=== PATIENT | male | born 1980 | race Caucasian/White ===

== ENCOUNTER → 2018-01-16 01:43 | Outpatient (CLI) | payer MEDICAID, SELFPAY ==
--- NOTE | 2018-01-16 15:27 | DI.REPORT_ITS ---
SYMPTOMS/DIAGNOSIS: LT ELBOW PAIN AND STIFFNESS, FOR PAST 2 MONTHS GETTING WORSE, M25.522 LEFT ELBOW: Comparison is made with right elbow dated 3Feb17. No fracture or other bony deformity is seen. The bones appear normally mineralized. No joint effusion or significant degenerative changes are seen. IMPRESSION: Negative left elbow.
== END ==
PROVIDERS: PCP Family Medicine; Visit Provider Family Medicine
DX: M25.522 Pain in left elbow (principal); M25.622 Stiffness of left elbow, not elsewhere classified
CPT/HCPCS: 73080

== ENCOUNTER 2018-01-29 17:44 | Emergency (ER) | payer MEDICAID, SELFPAY ==
[2018-01-29 17:57] VITALS: BP 141/83; PULSE 85; RESP 20; TEMP 37.3; O2SAT 97
--- NOTE | 2018-01-29 18:50 | DI.REPORT_ITS ---
SYMPTOM/DIAGNOSIS: PAIN AFTER ROTATIONAL INJURY LEFT FOOT: Multiple views. No acute fracture or dislocation is seen. Mild degenerative changes are seen in the left foot, particularly at the first metatarsal phalangeal joint. No radiopaque foreign bodies are seen in the soft tissues. There is mild swelling of the forefoot. IMPRESSION: No acute fracture or dislocation.
--- NOTE | 2018-01-29 18:54 | ED.GENADUL_ITS ---
Disposition Clinical Impression: Foot sprain Disposition: HOME Condition: Stable Instructions: Foot Sprain (ED) Additional Instructions: Encourage rest, Ice, elevation. Tylenol and/or ibuprofen as needed for discomfort. Keep upcoming appointment with Dr. Estrada. Please contact our office tomorrow to see if it is possible to have your foot evaluated by him this week. If not, please follow-up with primary care next week for reevaluation. Continue with crutches and postoperative shoe while pain persists. If you develop new or worsening symptoms please seek care urgently once again. Referrals: James Barajas MD [Primary Care Provider] - Moe Estrada MD [ [facility] STAFF PHYSICIAN] - Medical Decision Making - Radiology Data Radiology results: report reviewed Imaging reviewed by radiologist. Advise mild first metatarsophalangeal degenerative changes. No significant tarsometatarsal disruption is identified radiographically. Mild tibiotalar degenerative changes. No acute fracture. No dislocation. Dorsal foot soft tissue swelling noted. No acute bony pathology. - Medical Decision Making Patient presents today with chief complaint of left foot pain after jumping out of a truck and suffered a rotational injury. On exam, patient is having pain over the arch, the midfoot as well as the proximal fifth metatarsal. Sensation is intact. He is a 2+ distal pulses. Brisk capillary refill. No pain over the medial or lateral malleolus. Range of motion of the ankle is not assessed secondary to his pain in the foot. Achilles is palpated, no pain to palpation, feels to be intact. Negative Lane test. No pain with over the fibular head or neck. Calf is soft and nontender. Will give patient Tylenol and ibuprofen will obtain foot x-rays, I have specifically requested a weighted image to evaluate for possible midfoot injury. X-ray reviewed by radiologist. No significant normality noted. I discussed this with patient. Advised sprain. Encourage rest, ice, elevation. Tylenol and/or ibuprofen as needed for discomfort. Patient be fitted with a postoperative shoe and given crutches to help with ambulation. He does report that he has an upcoming appointment with Dr. Estrada for other issue. He is questioning if he may discuss this further with Dr. Estrada. I advised that he contact the office tomorrow to discuss the addition of the new complaint to his upcoming visit. If he is unable to have this completed in a timely manner expected with his appointment, I advised that he follow-up with primary care. We discussed new/worsening symptoms when to seek care urgently once again. We discussed activities that he should avoid which cause undue pressure and increased pain on the foot. All his questions and concerns were addressed and he is in agreement with this plan. History of Present Illness - General Chief complaint: Orthopedic Stated complaint: LT LEG FOOT PAIN Time Seen by Provider: 01/29/18 18:50 Source: patient, family, RN notes reviewed Mode of arrival: ambulatory Limitations: no limitations - History of Present Illness Initial comments: Patient is a 37-year-old male, accompanied by his mother, with chief complaint of left foot pain. He reports that approximately 2:00 this afternoon when he jumped out of his truck he suffered a rotational injury to the foot. He was wearing the work boots at the time of the injury. He denies any altered sensation. Is been having difficulty ambulating secondary to his discomfort. Indicating pain about the foot, but is a midfoot as area of discomfort. Pain is also noted laterally and medially. Denies any pain in the toes. States the pain can radiate proximally with ambulation but denies any injury to the ankle or knee. Denies other injury the time of the incident. Did not strike his head or lose consciousness. No break in the skin. - Related Data Diclofenac Sodium 75 mg PO BID #60 tab-cap 01/15/18 Fluoxetine HCl [Prozac] 40 mg PO DAILY #90 tab-cap 01/15/18 Allergies Allergy/AdvReac Type Severity Reaction Status Date / Time No Known Allergies Allergy Unverified 01/29/18 18:00 Review of Systems Constitutional: no symptoms reported Respiratory: no symptoms reported Musculoskeletal: as per HPI Skin: as per HPI. denies: rash, lesions, change in color Neurological: as per HPI, abnormal gait Past Medical History - Past Medical History Diverticulitis, cervical fusion post trauma Surgical history: no surgical history General Exam - General Limitations: no limitations General appearance: alert, in no apparent distress - Eye Eye exam: Present: normal apperance - Respiratory Respiratory exam: Absent: respiratory distress - Extremities Exam Extremities exam: Present: tenderness, normal capillary refill, joint swelling. Absent: normal inspection (Exam the patient's left lower extremity is significant for swelling to the dorsal aspect of the foot. He is point tender grossly about the foot. Toes are not affected. No swelling or discoloration of this area. Pain is elicited with palpation over the proximal metatarsal. Pain is also elicited with palpation of the arch and midfoot. No pain over the calcaneus. No pain to palpation of the Achilles. Negative Lane test. No pain with palpation about the knee, no pain over the fibular head or neck.), full ROM, pedal edema, calf tenderness - Neurological Exam Neurological exam: Present: alert, abnormal gait (Ambulating with antalgic gait) - Psychiatric Psychiatric exam: Present: normal affect, normal mood - Skin Skin exam: Present: warm, dry, intact, normal color Course Vital Signs - 24 hr 01/29/18 17:57 Temperature 37.3 C Pulse 85 Respiratory 20 Rate Blood Pressure 141/83 Pulse Oximetry 97
[2018-01-29] MEDS: Acetaminophen 500 MG TAB 1000 MG PO (18:59)
[2018-01-29] MEDS: Ibuprofen 600 MG TAB PO (18:59)
--- NOTE | 2018-01-29 20:29 | DI.VRAD_ITS ---
EXAM: XR Left Foot Complete, 3 or More Views CLINICAL HISTORY: 37 years old, male; Pain; Foot; Left; Patient HX: Pain after rotational injury; Additional info: Weighted views done also, concern for mid-foot injury TECHNIQUE: Frontal, lateral and oblique views of the left foot. COMPARISON: No relevant prior studies available. FINDINGS: Bones/joints: Mild first metatarsophalangeal degenerative changes. No significant tarsal metatarsal disruption is identified radiographically. Mild tibiotalar degenerative changes. No acute fracture. No dislocation. Soft tissues: Dorsal foot soft tissue swelling. IMPRESSION: No acute bony pathology. Dictated and Authenticated by: Emma Mahoney MD. Ordering:MARC FONSECA MD
== END 2018-01-29 21:24 | disposition home or self-care (01) ==
PROVIDERS: Emergency Provider Physician Assistant; PCP Family Medicine
DX: S93.602A Unspecified sprain of left foot, initial encounter (principal)
CPT/HCPCS: 99283; 73630; 99282; E0114

== ENCOUNTER 2018-05-31 13:23 | Outpatient (CLI) | payer MEDICAID, SELFPAY ==
--- NOTE | 2018-05-31 12:51 | DI.RAD_ITS ---
SYMPTOMS/DIAGNOSIS: CHRONIC LOW LUMBAR PAIN WITH STIFFNESS LUMBOSACRAL SPINE: AP, lateral, oblique and coned-down lateral images were performed. The history is chronic low lumbar pain with stiffness. There is no recent trauma history. The bony structures are normally mineralized. The vertebral bodies and disc spaces are intact. The pedicles, spinous and transverse processes are normal. The facet joints are intact with no evidence of spondylolysis or spondylolisthesis. There is an apparent anomaly involving the left hemisacrum with apparent compromise or obliteration of the left SI joint with probable effusion between the sacrum and the ilium. There is no focal region of bony destruction and the bony prominence is well circumscribed as evaluated on AP and oblique films. On the lateral projection, the bony prominence is also well seen and appears well circumscribed. The sacrum is otherwise unremarkable. The right hemisacrum is normal. The right SI joint is normal save for degenerative changes. SUMMARY: No evidence of a fracture, dislocation or subluxation. 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 Further evaluation with CT to further elucidate the anatomy is recommended.
== END 2018-05-31 13:43 ==
PROVIDERS: PCP Family Medicine; Visit Provider Family Medicine
DX: M54.5 Low back pain (principal); M25.60 Stiffness of unspecified joint, not elsewhere classified; R93.7 Abnormal findings on diagnostic imaging of other parts of musculoskeletal system
CPT/HCPCS: 72110

== ENCOUNTER 2018-06-08 01:28 | Outpatient (CLI) | payer MEDICAID, SELFPAY ==
--- NOTE | 2018-06-08 14:25 | DI.CT_ITS ---
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 Comparison x-ray of the abdomen and pelvis is 11/19/16. No acute fracture or dislocation, lytic or sclerotic lesion is seen. The sacroiliac joints appear grossly unremarkable. No ankylosis or significant sclerosis is appreciated. At the posterior superior iliac spine, there are mild bony productive changes seen. These are unchanged compared to the oldest examination available from 2006. No associated soft tissue mass or lytic or sclerotic lesion is seen. This may reflect prior trauma or be developmental/congenital in nature. The possibility of an osteochondroma cannot be excluded. The bones are normally mineralized. The soft tissues are unremarkable. IMPRESSION: 1. Stable osseous changes seen at the left posterior superior iliac spine. The findings appear chronic. The findings suggest a benign process; this may be postsurgical or posttraumatic, congenital or developmental reasons should also be considered. 2. No evidence of sacroiliac joint ankylosis or degenerative change.
== END 2018-06-08 01:48 ==
PROVIDERS: PCP Family Medicine; Visit Provider Family Medicine
DX: M47.818 Spondylosis without myelopathy or radiculopathy, sacral and sacrococcygeal region (principal); M53.3 Sacrococcygeal disorders, not elsewhere classified
CPT/HCPCS: 72192

== ENCOUNTER 2018-06-20 02:08 | Observation (INO) | payer MEDICAID, SELFPAY ==
[2018-06-20] VITALS (13 sets, daily range): BP systolic 128–152; BP diastolic 71–92; PULSE 51–84; RESP 12–22; TEMP 36.2–37.3; O2SAT 95–99
--- NOTE | 2018-06-20 02:34 | W.ED.GENAD ---
Discharge Plan Disposition Patient Disposition: [facility] INPATIENT Condition: Good Discharge Details Chief Complaint: Cellulitis Clinical Impression: Suppurative tenosynovitis of flexor tendon of left hand Primary Care Provider: James Barajas ED Provider: Antoine James Newton Meds and New Rx's Prescriptions: No Action baclofen 10 mg tablet 10 mg PO TID PRN (Reason: muscle spasm) Qty: 30 RF: 0 diclofenac sodium 75 mg tablet,delayed release (DR/EC) 75 mg PO BID Qty: 60 RF: 0 fluoxetine [Prozac] 40 MG capsule 40 mg PO DAILY Qty: 90 RF: 1 Medical Decision Making Patient presenting with left middle finger swelling and pain. He has all the signs and symptoms of a flexor tenosynovitis. With the purulent drainage coming from the volar aspect of the mid long finger this is likely infectious. IV is established and patient is made n.p.o. Fluids are started. CBC and chemistry sent and x-ray of the left middle finger obtained. Patient ordered for tetanus, vancomycin, ceftriaxone, Toradol. Patient's white count is elevated. Hemoglobin and chemistries normal. X-ray shows normal bone. There does appear to be a foreign body present just below the skin at the level of where he has drainage coming from the finger. He denies any previous open wound. The drainage is because he stabbed the area with a needle. Case discussed with Dr. Gaming. Wound culture of the purulent drainage obtained and sent. Patient admitted to orthopedics under observation status for surgical washout and debridement later today. Lab Data Lab results reviewed: Yes I reviewed the patient's lab results. HPI General Mode of arrival: ambulatory. Date/Time Provider Initiated Documentation: 06/20/18 02:19. Limitations to Documentation: no limitations. Information obtained by: patient. HPI Narrative: Patient presents to ED with left finger pain. Patient reports injuring his finger a week ago when he slammed it between a couple pieces of wood. However, it really did not hurt and did not bother him. He fell today but did not think much of it. Tonight he noticed that his finger was getting painful and swollen. He noticed what he thought was a little pus pocket just below the finger pad left middle finger. He popped it and it has been draining ever since. He is unable to flex or extend his finger. He has pain radiating all the way up to the wrist. He thinks he had a fever tonight. He is left-hand dominant. He presents to the ED now for evaluation. Related Data Home Medications Medication Instructions Recorded Confirmed fluoxetine [Prozac] 40 mg PO DAILY #90 tab-cap 01/15/18 06/20/18 baclofen 10 mg tablet 10 mg PO TID PRN #30 tab 05/31/18 06/20/18 diclofenac sodium 75 mg 75 mg PO BID #60 tab 05/31/18 06/20/18 tablet,delayed release Previous Rx's Medication Instructions Recorded fluoxetine [Prozac] 40 mg PO DAILY #90 tab-cap 01/15/18 baclofen 10 mg tablet 10 mg PO TID PRN #30 tab 05/31/18 diclofenac sodium 75 mg 75 mg PO BID #60 tab 05/31/18 tablet,delayed release Allergies Allergy/AdvReac Type Severity Reaction Status Date / Time No Known Allergies Allergy Unverified 06/20/18 02:15 General Stated Complaint: Cellulitis HANNAH: 3 Review of Systems Constitutional Denies chills, Reports fever(s) (subjective), Denies headache(s) and Denies weakness ENT Denies facial pain, Denies headache(s), Denies nasal obstruction, Denies neck pain and Denies sore throat Cardiovascular Denies chest pain, Denies syncope, Denies irregular heart rhythm, Denies lightheadedness and Denies dyspnea Respiratory Denies cough and Denies dyspnea Gastrointestinal Denies abdominal pain, Denies diarrhea, Denies nausea and Denies vomiting Musculoskeletal Denies back pain, Reports limited range of motion, Denies neck pain and Denies numbness Integumentary/Breasts Denies erythema and Reports wounds Neurologic Denies syncope, Denies headache(s), Denies numbness and Denies weakness [facility] Medical History Chronic back pain (Chronic) Surgical History H/O neck surgery (Inactive) Appendectomy (Inactive 12/01/17) Colonoscopy - IV Sedation (Inactive 02/24/17) Colonoscopy - MAC (Inactive 04/11/17) Family History Father Essential hypertension Hyperlipidemia Grandmother Colon cancer Social History Smoking/Tobacco Use Status: Current every day Exam Const General: cooperative and uncomfortable Orientation: alert and oriented x3 HENMT Head: normocephalic and atraumatic Neck Neck: trachea midline and supple Resp Effort & Inspection: normal respiratory effort Cardio Pulses: radial pulses present Skin General skin exam: no erythema Wounds: wounds noted (left middle finger with pus draining from volar aspect of the PIP area) Neuro General: alert, oriented x3, no focal motor deficits and CN's II-XI intact bilaterally Extrem Left upper extremity: wrist Details: normal ROM; no tenderness and no swelling and hand Details: abnormal to inspection, tenderness, abnormal ROM of finger, swelling and other (On able to passively flex or extend the left long finger, tenderness along flexor tendon) Course Vital Signs Temperature 99.1 F 06/20/18 02:11 Pulse 84 06/20/18 02:11 Respiratory Rate 20 06/20/18 02:11 Blood Pressure 151/89 H 06/20/18 02:11 Pulse Oximetry 98 06/20/18 02:11 Temperature 99.1 F 06/20/18 02:11 Temperature Source Temporal Artery Scan 06/20/18 02:11 Pulse 84 06/20/18 02:11 Respiratory Rate 20 06/20/18 02:11 Respiratory Effort Non-Labored 06/20/18 02:11 Blood Pressure 151/89 H 06/20/18 02:11 Blood Pressure Position Sitting 06/20/18 02:11 Pulse Oximetry 98 06/20/18 02:11 Oxygen Delivery Method Room Air 06/20/18 02:11 Oxygen Flow Rate 0 06/20/18 02:11 Pain Level 9 06/20/18 02:11
[2018-06-20 02:43] LABS: Abs Immature Grans 0.06 k/cumm (0.0-0.09); Absolute Basophil Count 0.04 k/cumm (0.0-0.2); Absolute Lymphocyte Count 2.68 k/cumm (1.2-3.4); Absolute Monocyte Count 0.99 k/cumm (0.11-0.7); Absolute Neutrophil Count 13.67 k/cumm (1.2-6.7); Basophils % 0.2; Eosinophils % 1.7; HCT 40.6 % (40.0-50.0); Immature Grans % 0.3; Lymphocytes % 15.1; Mean Corp. HGB Concentration 34.5 g/dL (32.0-36.0); Mean Corpuscular Hemoglobin 31.5 pg (27.0-33.0); Mean Corpuscular Volume 91.2 fL (80-95); Mean Platelet Volume 10.2 fL (8.0-11.0); Monocytes % 5.6; Neutrophils % 77.1; Platelet Count 279 x1000/uL (130-400); RBC 4.45 m/cumm (4.50-6.00); RBC Distribution Width 13.2 % (11.8-14.1); White Blood Cell Count 17.73 k/cumm (4.4-10.8)
--- NOTE | 2018-06-20 02:46 | ED.GENADUL_ITS ---
Discharge Plan Disposition Patient Disposition: [facility] INPATIENT Condition: Good Discharge Details Chief Complaint: Cellulitis Clinical Impression: Suppurative tenosynovitis of flexor tendon of left hand Primary Care Provider: James Barajas ED Provider: Antoine James Rockham Meds and New Rx's Prescriptions: No Action baclofen 10 mg tablet 10 mg PO TID PRN (Reason: muscle spasm) Qty: 30 RF: 0 diclofenac sodium 75 mg tablet,delayed release (DR/EC) 75 mg PO BID Qty: 60 RF: 0 fluoxetine [Prozac] 40 MG capsule 40 mg PO DAILY Qty: 90 RF: 1 Medical Decision Making Patient presenting with left middle finger swelling and pain. He has all the signs and symptoms of a flexor tenosynovitis. With the purulent drainage coming from the volar aspect of the mid long finger this is likely infectious. IV is established and patient is made n.p.o. Fluids are started. CBC and chemistry sent and x-ray of the left middle finger obtained. Patient ordered for tetanus, vancomycin, ceftriaxone, Toradol. Patient's white count is elevated. Hemoglobin and chemistries normal. X-ray shows normal bone. There does appear to be a foreign body present just below the skin at the level of where he has drainage coming from the finger. He denies any previous open wound. The drainage is because he stabbed the area with a needle. Case discussed with Dr. Gaming. Wound culture of the purulent drainage obtained and sent. Patient admitted to orthopedics under observation status for surgical washout and debridement later today. Lab Data Lab results reviewed: Yes I reviewed the patient's lab results. HPI General Mode of arrival: ambulatory . Date/Time Provider Initiated Documentation: 06/20/18 02:19 . Limitations to Documentation: no limitations . Information obtained by: patient . HPI Narrative: Patient presents to ED with left finger pain. Patient reports injuring his finger a week ago when he slammed it between a couple pieces of wood. However, it really did not hurt and did not bother him. He fell today but did not think much of it. Tonight he noticed that his finger was getting painful and swollen. He noticed what he thought was a little pus pocket just below the finger pad left middle finger. He popped it and it has been draining ever since. He is unable to flex or extend his finger. He has pain radiating all the way up to the wrist. He thinks he had a fever tonight. He is left-hand dominant. He presents to the ED now for evaluation. Related Data Home Medications Medication Instructions Recorded Confirmed fluoxetine [Prozac] 40 mg PO DAILY #90 tab-cap 01/15/18 06/20/18 baclofen 10 mg tablet 10 mg PO TID PRN #30 tab 05/31/18 06/20/18 diclofenac sodium 75 mg 75 mg PO BID #60 tab 05/31/18 06/20/18 tablet,delayed release Previous Rx's Medication Instructions Recorded fluoxetine [Prozac] 40 mg PO DAILY #90 tab-cap 01/15/18 baclofen 10 mg tablet 10 mg PO TID PRN #30 tab 05/31/18 diclofenac sodium 75 mg 75 mg PO BID #60 tab 05/31/18 tablet,delayed release Allergies Allergy/AdvReac Type Severity Reaction Status Date / Time No Known Allergies Allergy Unverified 06/20/18 02:15 General Stated Complaint: Cellulitis HANNAH: 3 Review of Systems Constitutional Denies chills, Reports fever(s) (subjective), Denies headache(s) and Denies weakness ENT Denies facial pain, Denies headache(s), Denies nasal obstruction, Denies neck pain and Denies sore throat Cardiovascular Denies chest pain, Denies syncope, Denies irregular heart rhythm, Denies lightheadedness and Denies dyspnea Respiratory Denies cough and Denies dyspnea Gastrointestinal Denies abdominal pain, Denies diarrhea, Denies nausea and Denies vomiting Musculoskeletal Denies back pain, Reports limited range of motion, Denies neck pain and Denies numbness Integumentary/Breasts Denies erythema and Reports wounds Neurologic Denies syncope, Denies headache(s), Denies numbness and Denies weakness [facility] Medical History Chronic back pain (Chronic) Surgical History H/O neck surgery (Inactive) Appendectomy (Inactive 12/01/17) Colonoscopy - IV Sedation (Inactive 02/24/17) Colonoscopy - MAC (Inactive 04/11/17) Family History Father Essential hypertension Hyperlipidemia Grandmother Colon cancer Social History Smoking/Tobacco Use Status: Current every day Exam Const General: cooperative and uncomfortable Orientation: alert and oriented x3 HENMT Head: normocephalic and atraumatic Neck Neck: trachea midline and supple Resp Effort & Inspection: normal respiratory effort Cardio Pulses: radial pulses present Skin General skin exam: no erythema Wounds: wounds noted (left middle finger with pus draining from volar aspect of the PIP area) Neuro General: alert, oriented x3, no focal motor deficits and CN's II-XI intact bilaterally Extrem Left upper extremity: wrist Details: normal ROM; no tenderness and no swelling and hand Details: abnormal to inspection, tenderness, abnormal ROM of finger, swelling and other (On able to passively flex or extend the left long finger, tenderness along flexor tendon) Course Vital Signs Temperature 99.1 F 06/20/18 02:11 Pulse 84 06/20/18 02:11 Respiratory Rate 20 06/20/18 02:11 Blood Pressure 151/89 H 06/20/18 02:11 Pulse Oximetry 98 06/20/18 02:11 Temperature 99.1 F 06/20/18 02:11 Temperature Source Temporal Artery Scan 06/20/18 02:11 Pulse 84 06/20/18 02:11 Respiratory Rate 20 06/20/18 02:11 Respiratory Effort Non-Labored 06/20/18 02:11 Blood Pressure 151/89 H 06/20/18 02:11 Blood Pressure Position Sitting 06/20/18 02:11 Pulse Oximetry 98 06/20/18 02:11 Oxygen Delivery Method Room Air 06/20/18 02:11 Oxygen Flow Rate 0 06/20/18 02:11 Pain Level 9 06/20/18 02:11
[2018-06-20 02:50] LABS: Anion Gap 9.9 mmol/L (3-11); BUN 11 mg/dL (7-18); CO2 25.1 mmol/L (21.0-32.0); CREATININE 0.92 mg/dL (0.70-1.30); Calcium 8.8 mg/dL (8.5-10.1); Chloride 105 mmol/L (98-107); Glucose 89 mg/dL (70-100); Potassium 3.7 mmol/L (3.5-5.1); Sodium 140 mmol/L (136-145)
--- NOTE | 2018-06-20 03:00 | DI.RAD_ITS ---
SYMPTOM/DIAGNOSIS: PAIN, SWELLING, CRUSHED BETWEEN WOOD LEFT MIDDLE FINGER: No fracture or dislocation is seen. Soft tissue swelling is noted. There is a rounded density in the volar soft tissues at the level of the middle phalanx which could be on or within the skin. IMPRESSION: Soft tissue swelling. Small rounded density either on or within the skin.
--- NOTE | 2018-06-20 03:19 | DI.VRAD_ITS ---
EXAM: XR Left Finger(s), 2 or More Views EXAM DATE/TIME: 06/20/2018 2:28 AM CLINICAL HISTORY: 37 years old, male; Pain; Finger(s); Left; Patient HX: Crushed finger between wood the other day and was feeling okay. Now swollen and painful middle finger, some pain in 4th finger also. Unable to straighten finger and flatten hand down TECHNIQUE: XR Left finger minimum 2 views. COMPARISON: No relevant prior studies available. FINDINGS: Bones/joints: No fracture or dislocation. Joint spaces are maintained. Soft tissues: Diffuse swelling of the third finger. Faint 2 mm radiodensity appreciated just beneath the skin of the volar aspect of the third finger near the level of the distal interphalangeal joint which may represent a foreign body. IMPRESSION: 1. Diffuse swelling of the third finger. Faint 2 mm radiodensity appreciated just beneath the skin of the volar aspect of the third finger near the level of the distal interphalangeal joint which may represent a foreign body. 2. No fracture or dislocation. Dictated and Authenticated by: Catarino Colmenares MD. Ordering:RAJI Schultz MD
[2018-06-20] MEDS: Ketorolac 30 MG/ML VIAL IVP (03:20)
[2018-06-20] MEDS: Lactated Ringers 1,000 ML 150 ML IV ×2 (03:35→06:04)
[2018-06-20] MEDS: Ondansetron 4 MG/2 ML VIAL IVP (03:35)
[2018-06-20] MEDS: VANCOMYCIN 1,500 MG in Normal Saline 500 ML 333.3333 MG IVPB (03:36)
[2018-06-20] MEDS: Normal Saline Flush 10 ML SYR IVP ×4 (03:36→21:11)
[2018-06-20] MEDS: MORPHine 4 MG/ML SYR IVP (03:54)
[2018-06-20 07:10] LABS: C-Reactive Protein 1.33 mg/dL (0.0-0.3)
--- NOTE | 2018-06-20 07:17 | HPE_ITS ---
Date of service: 06/20/18 Time of Service: 07:08 Assessment and Plan (1) Suppurative tenosynovitis of flexor tendon of left hand: Start date: 06/19/18 Start time: 21:15 Current visit: Yes Status: Acute Wade is a 37-year-old with infectious flexor tenosynovitis of the left middle finger. This was likely due to contamination after having the blood blister of the middle finger. Either way he has a draining wound over the DIP joint on the palmar surface which is likely communication with the flexor tendon sheath resulting in the pain and symptoms traveling down the finger and into the hand. I discussed treatment with Wade. A sample of the fluid was taken in the emergency department therefore he was started on IV antibiotics. Given the drainage I would recommend surgical debridement of the area with irrigation and debridement of the flexor tendon sheath. I reviewed the technical details of this case and also the risks to include bleeding, infection, pain, stiffness, continued infection, need for repeat procedures. Despite these risks, he elects to proceed. Wade also expresses significant concern on missing work and time away from his kids as well as an upcoming court date. I discussed the current treatment for this condition and will try to work with him on getting him out as soon as possible. For this reason, we also started IV antibiotics after obtaining a culture in the emergency department although it may not be as accurate as intraoperative cultures. He will remain n.p.o. and we will perform operative debridement during the day today. 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 After that he noted that there was a blood blister as he called it. He has had these before when he is pinched his fingers between heavy objects. He ruptured it like he has done in the past. Unfortunately, earlier this evening he all of a sudden developed significant amount of pain. He noted the fingers becoming more swollen and more painful and he was unable to bend the finger. He saw some change to the skin from the palmar aspect of the left middle finger at the level of the DIP flexion crease. Using a needle he drained it and noted purulent material. It has been draining since then. He has been unable to flex or extend the finger without significant pain. He rep orts pain over the palmar side of the finger up into the palm. 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 He reports subjective fevers but no recorded once. He has had some chills. He otherwise is healthy. He did have appendicitis year and a half ago but otherwise has no chronic medical conditions. No diabetes or problems with recurrent infections. Review of Systems Review of Systems All systems reviewed & are unremarkable except as noted in HPI and below PFSH Medical History Chronic back pain (Chronic) Surgical History H/O neck surgery (Inactive) Appendectomy (Inactive 12/01/17) Colonoscopy - IV Sedation (Inactive 02/24/17) Colonoscopy - MAC (Inactive 04/11/17) Family History Father Essential hypertension Hyperlipidemia Grandmother Colon cancer Social History Smoking/Tobacco Use Status: Current every day Meds Home Medications Medication Instructions Recorded Confirmed Type fluoxetine [Prozac] 40 mg PO DAILY #90 tab-cap 01/15/18 06/20/18 Rx baclofen 10 mg tablet 10 mg PO TID PRN #30 tab 05/31/18 06/20/18 Rx diclofenac sodium 75 mg 75 mg PO BID #60 tab 05/31/18 06/20/18 Rx tablet,delayed release Allergies Allergy/AdvReac Type Severity Reaction Status Date / Time No Known Allergies Allergy Unverified 06/20/18 02:15 Exam Narrative Exam Narrative: Wade is in no acute distress. He is sitting comfortably in the hospital stretcher. Heart rate and rhythm are regular. Chest is clear to auscultation bilaterally. Evaluation left hand shows chronic signs of manual labor. There are thick calluses and darkened discoloration of all fingers. The left middle finger is evaluated on the palmar aspect of the middle finger at the level of the DIP flexion crease there is a break in the skin with a small amount of draining thick white colored fluid. It is difficult to express due to pain in the area. The skin around this area is stretched and widened. The entire middle finger is much more swollen than the other fingers. It is held in approximately 30 degrees of flexion at the MP, PIP, and DIP joints. He is able to actively flex the finger for about 20 or 30 degrees but has significant pain in doing so. He does not allow passive range of motion of the finger. There is exquisite pain to palpation along the flexor tendon starting at the DIP joint working down into the mid palm at the level around the A1 sammy. He does not have pain with wrist range of motion. There is no other skin defects. Results Labs : 06/20/18 02:38 06/20/18 02:38 Laboratory Results - last 24 hr 06/20/18 06/20/18 02:38 02:38 WBC 17.73 H RBC 4.45 L Hgb 14.0 Hct 40.6 MCV 91.2 MCH 31.5 MCHC 34.5 RDW 13.2 Plt Count 279 MPV 10.2 Immature Gran % 0.3 Neutrophils % 77.1 Lymphocytes % 15.1 Monocytes % 5.6 Eosinophils % 1.7 Basophils % 0.2 Absolute Neutrophils 13.67 H Absolute Lymphocytes 2.68 Absolute Monocytes 0.99 H Absolute Eosinophils 0.30 Absolute Basophils 0.04 Sodium 140 Potassium 3.7 Chloride 105 Carbon Dioxide 25.1 Anion Gap 9.9 BUN 11 Creatinine 0.92 Estimated GFR/1.73 m2 >= 60.00 Glucose 89 Calcium 8.8 Last Vital Signs Temp 37 C 06/20/18 04:20 Pulse 67 06/20/18 04:20 Resp 20 06/20/18 04:20 BP 148/92 H 06/20/18 04:20 Pulse Ox 97 06/20/18 04:20
[2018-06-20] MEDS: Ketorolac 15 MG/ML VIAL IVP ×2 (10:14→16:18)
[2018-06-20] MEDS: Bupivacaine 0.25% Pres-Free 10 ML VIAL (12:46)
[2018-06-20] MEDS: fentaNYL 100 MCG/2 ML VIAL IVP ×2 (13:15→13:25)
--- NOTE | 2018-06-20 13:27 | PDOC.CMIN ---
- If Service Date Differs Date of service: 06/20/18 Time of Service: 13:28 Care Management Initial Assess REASON FOR HOSPITALIZATION:: Infected 3rd finger. PAST MEDICAL HISTORY/PAST SURGICAL HISTORY:: Acute appendicitis. Surgical hx: Lap appy 12/01/17 PREVIOUS FUNCTIONAL STATUS/SOCIAL/FAMILY SUPPORTS:: Shiraz lives in [place], [place] ADVANCE DIRECTIVES:: None on file at [facility] patient declines at this time Has patient been provided with information about the portal?: Yes Did the patient sign up for the portal?: No CODE STATUS:: Full Code INSURANCE COVERAGE / FINANCIAL ISSUES:: Medicaid CURRENT HOME/COMMUNITY SERVICES/EQUIPMENT:: None at this time PRIMARY CARE PHYSICIAN:: POTENTIAL DISCHARGE NEEDS:: Follow up with provider scheduled prior to discharge. PATIENT/FAMILY EDUCATION NEEDS:: Discharge education, limitations, follow-up plan of care, medications, self-management and asked me 3. ANTICIPATED BARRIERS TO DISCHARGE:: None identified at this time. TRANSPORTATION:: Via private car with family at time of discharge. PLAN:: Wade will be discharged home when medically ready, he is receiving IV antibioitcs. He will be discharged home with no anticipated services.
[2018-06-20] MEDS: HYDROmorphone 2 MG/ML VIAL IVP (13:30)
--- NOTE | 2018-06-20 13:49 | INITIAL_ITS ---
- If Service Date Differs Date of service: 06/20/18 Time of Service: 13:28 Care Management Initial Assess REASON FOR HOSPITALIZATION:: Infected 3rd finger. PAST MEDICAL HISTORY/PAST SURGICAL HISTORY:: Acute appendicitis. Surgical hx: Lap appy 12/01/17 PREVIOUS FUNCTIONAL STATUS/SOCIAL/FAMILY SUPPORTS:: Shiraz lives in [place], [place] ADVANCE DIRECTIVES:: None on file at [facility] patient declines at this time Has patient been provided with information about the portal?: Yes Did the patient sign up for the portal?: No CODE STATUS:: Full Code INSURANCE COVERAGE / FINANCIAL ISSUES:: Medicaid CURRENT HOME/COMMUNITY SERVICES/EQUIPMENT:: None at this time PRIMARY CARE PHYSICIAN:: POTENTIAL DISCHARGE NEEDS:: Follow up with provider scheduled prior to discharge. PATIENT/FAMILY EDUCATION NEEDS:: Discharge education, limitations, follow-up plan of care, medications, self-management and asked me 3. ANTICIPATED BARRIERS TO DISCHARGE:: None identified at this time. TRANSPORTATION:: Via private car with family at time of discharge. PLAN:: Wade will be discharged home when medically ready, he is receiving IV antibioitcs. He will be discharged home with no anticipated services.
--- NOTE | 2018-06-20 14:03 | CHAPLAIN ---
I had a short visit with Wade. He had a few family members in the room with him and he was waiting to speak with the physician. I explained my role and offered support.
[2018-06-20] MEDS: VANCOMYCIN 1,000 MG in Normal Saline 250 ML 166.6666 MG IVPB (14:13)
[2018-06-20] MEDS: Acetaminophen 500 MG TAB 1000 MG PO (16:17)
[2018-06-20] MEDS: VANCOMYCIN 1,000 MG in Normal Saline 250 ML 167 MG IVPB (19:37)
--- NOTE | 2018-06-20 23:28 | W.PM.DS.N ---
Date of service: 06/20/18 Time of Service: 23:28 DS: Diagnosis Discharge Diagnosis (1) Suppurative tenosynovitis of flexor tendon of left hand: Status: Acute Discharge Plan Disposition Patient Disposition: HOME Condition: Good Discharge Details Chief Complaint: Cellulitis Reason For Visit: INFECTIOUS FLEXOR TENOSYNOVITIS Admit Date/Time: 06/20/18 03:20 Admit Provider: Jerzy Gaming Attending Provider: Jerzy Gaming Primary Care Provider: James Barajas ED Provider: [facility] Course Hospital Course: Jaun was admitted for management of suppurative flexor tenosynovitis. He was started on empiric antibiotics and underwent surgical debridement with a catheter technique on 06/20. He tolerated this well. Initial cultures grew Gram Positive Cocci. He tolerated antibiotics well and was deemed safe for discharge home on 06/21 with certain precautions and antibiotics. Home Meds and New Rx's Prescriptions: New ibuprofen 600 mg tablet 600 mg PO TID PRNQty: 90 RF: 3 sulfamethoxazole-trimethoprim [Bactrim DS] 800-160 mg tablet 1 tab PO BID Qty: 14 RF: 0 Continued baclofen 10 mg tablet 10 mg PO TID PRN (Reason: muscle spasm) Qty: 30 RF: 0 diclofenac sodium 75 mg tablet,delayed release (DR/EC) 75 mg PO BID Qty: 60 RF: 0 fluoxetine [Prozac] 40 MG capsule 40 mg PO DAILY Qty: 90 RF: 1 Discharge Instructions Instructions: Tenosynovitis (GEN) Additional Instructions: Activity: You may use the hand and finger for light activity. You should keep the finger away from direct contamination. You should work on finger motion once the surgical dressing is removed. Dressings: You should keep the initial dressing in place through , 06/21. After this, you may remove it and cover with bandaids. Keep the wound clean and dry. It may get wet and keeping it clean with soap and water is encouraged. You may have some slight drainage out of the wounds for the first 3-5 days. Medications: - You should take up to 1000mg of Acetaminophen and 600mg of Ibuprofen for pain relief. The larger Ibuprofen tablets were called into the pharmacy for you. - YOu may apply ice for pain relief. - You should take your antibiotic as described, Bactrim twice daily. Follow-up: 1 week Stand Alone Forms: Nursing Discharge Form Referrals: Jerzy Gaming MD [ [facility] STAFF PHYSICIAN] - Activity:: Activity as Tolerated Equipment/Supplies:: No Equipment Needed Diet:: Normal Diet Discharge Orders Discharge Orders: Discharge Order (Routine); Ordered 06/21/18 Ordered By: Jerzy Gaming DS: Data Vitals/I&O Vitals and I&O: Vital Signs Temperature 36.5 C 06/20/18 19:08 Temperature Source Tympanic 06/20/18 19:08 Pulse 71 06/20/18 19:08 Pulse Rhythm Regular 06/20/18 16:00 Respiratory Rate 15 06/20/18 19:08 Respiratory Effort Non-Labored 06/20/18 16:00 Respiratory Depth Normal 06/20/18 16:00 Respiratory Pattern Normal 06/20/18 16:00 Blood Pressure 129/76 06/20/18 19:08 Blood Pressure Position Sitting 06/20/18 02:11 Pulse Oximetry 95 06/20/18 19:08 Respiratory End-tidal CO2 30 06/20/18 13:50 Oxygen Delivery Method Room Air 06/20/18 19:08 Oxygen Flow Rate 0 06/20/18 19:08 Pain Level 0 06/20/18 19:08 Comment 06/20/18 08:01 Intake & Output 06/19/18 06/20/18 06/20/18 23:59 11:59 23:59 Intake Total 1477.500 / 3587.500 2110 / 3587.500 Balance 1477.500 / 3587.500 2110 / 3587.500 Weight 96.162 kg Intake: IV 1477.500 / 3007.500 1530 / 3007.500 Oral 580 / 580 Other: Urine Appearance Clear Comment voiding independently voiding independently in the bathroom Emesis Description None Voiding Methods Toilet Labs on day of discharge: Labs from last 24 hours 06/20/18 06/20/18 02:38 02:38 WBC 17.73 H RBC 4.45 L Hgb 14.0 Hct 40.6 MCV 91.2 MCH 31.5 MCHC 34.5 RDW 13.2 Plt Count 279 MPV 10.2 Immature Gran % 0.3 Neutrophils % 77.1 Lymphocytes % 15.1 Monocytes % 5.6 Eosinophils % 1.7 Basophils % 0.2 Absolute Neutrophils 13.67 H Absolute Lymphocytes 2.68 Absolute Monocytes 0.99 H Absolute Eosinophils 0.30 Absolute Basophils 0.04 Sodium 140 Potassium 3.7 Chloride 105 Carbon Dioxide 25.1 Anion Gap 9.9 BUN 11 Creatinine 0.92 Estimated GFR/1.73 m2 >= 60.00 Glucose 89 Calcium 8.8 C-Reactive Protein 1.33 H 06/20/18 12:34 Finger - Left Third Digit Surgical Culture - Pending 06/20/18 12:36 Hand - Left Anaerobic Culture - Pending 06/20/18 03:20 Finger - Left Third Digit Wound Culture - Pending Preliminary micro results at discharge 06/20/18 12:34 Surgical Culture - Pending Finger - Left Third Digit 06/20/18 12:36 Anaerobic Culture - Pending Hand - Left 06/20/18 03:20 Wound Culture - Pending Finger - Left Third Digit [facility] Medical History Chronic back pain (Chronic) Surgical History H/O neck surgery (Inactive) Appendectomy (Inactive 12/01/17) Colonoscopy - IV Sedation (Inactive 02/24/17) Colonoscopy - MAC (Inactive 04/11/17) Family History Father Essential hypertension Hyperlipidemia Grandmother Colon cancer Social History Smoking/Tobacco Use Status: Current every day
[2018-06-21 00:42] VITALS: BP 138/79; PULSE 61; RESP 18; TEMP 36.1; O2SAT 95
[2018-06-21] MEDS: Normal Saline Flush 10 ML SYR IVP (03:51)
[2018-06-21 04:09] VITALS: BP 146/87; PULSE 75; RESP 18; TEMP 36.5; O2SAT 97
[2018-06-21] MEDS: VANCOMYCIN 1,000 MG in Normal Saline 250 ML 167 MG IVPB (04:30)
[2018-06-21] MEDS: Ketorolac 15 MG/ML VIAL IVP (04:36)
[2018-06-21] MEDS: Acetaminophen 500 MG TAB 1000 MG PO (05:40)
--- NOTE | 2018-06-21 08:50 | ROE_ITS ---
Date of Surgery: June 20, 2018 Preoperative Diagnosis: Left middle finger infectious flexor tenosynovitis Postoperative Diagnosis: Left middle finger infectious flexor tenosynovitis Surgery: Irrigation and debridement of left middle finger flexor tendon sheath with tenosynovectomy Surgeon: Jerzy Gaming M.D. Anesthesia: General Estimated Blood Loss: Minimal Findings: There was purulent fluid seen immediately at the level of the puncture wound on the distal aspect of the finger but also at the level of the A1 sammy and within the flexor tendon sheath. This was irrigated with a catheter technique. Specimens: Culture swabs from the purulent fluid was sent to the lab. Complications: None Disposition: The patient was awakened from anesthesia and taken to the PACU in a stable condition. 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 He noted what he called a blood blister. He popped this with a needle. Unfortunately, two days later he started having some increasing pain and stiffness of the finger. 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 He was admitted to the hospital and I recommended surgical intervention given 4/4 Kanavel signs for flexor tenosynovitis. I discussed the risks of the procedure to include bleeding, infection, pain, stiffness, recurrence, need for repeat procedures. Despite these risks, he elected to proceed. Procedure Description: Jaun was greeted in the preoperative holding area. Previously in the morning consent was signed with the patient. His history and physical was updated. The correct site was marked. He was then taken back to the operating room. The left hand was placed on the arm table. A general anesthetic was administered. The left hand was then prepped with Betadine and draped in a standard fashion. Prophylactic antibiotics in the form of cefazolin were given. A time-out was performed for safe surgery. The limb was elevated for two minutes and an Esmarch local tourniquet was applied on the distal forearm. The distal aspect of the middle finger where the puncture wound was identified and noted to be just proximal to the distal flexion crease of the finger. I therefore made a transverse incision at this level. I made sure to stay in the midline and avoid neurovascular bundles. Immediately upon making this incision there was a somewhat milky fluid that was seen at this level. There was no true foreign body seen, but some debris right at the puncture site which was removed sharply with forceps. The deep dissection was carried down with the tenotomy scissors where there was an obvious break in the flexor tendon sheath, and the flexor tendon was visualized and it was intact. With this visualization intact, I then applied pressure to the flexor tendon sheath starting at the base of the finger and working distally. This produced purulent material from within the flexor tendon sheath. This was swabbed and sent to the lab for aerobic and anaerobic cultures. I then made a second incision at the base of the finger at the level of the MCP joint and A1 sammy. This longitudinal incision was cut through the skin sharply. Blunt dissection was carried down through the deeper tissues down onto the flexor tendon. The A1 sammy was identified. The A1 sammy was incised longitudinally, opening into the flexor tendon sheath. Immediately there was some flush of purulent material seen. This was irrigated locally. We had visualization of the flexor tendon sheath. Using an 18-gauge angiocatheter I was able to thread this into the flexor tendon sheath. Using a syringe, I then irrigated the flexor tendon sheath with excellent efflux of fluid out the distal end of the finger. Two hundred fifty (250) cc of fluid was then irrigated through the flexor tendon sheath in this fashion. After the first 20 to 40 cc, the fluid became clear and remained clear for the entirety of the irrigation procedure. At the level of the A1 sammy, I then inspected the tendons which showed no significant tearing. There was significant tenosynovitis in this area. It was excised sharply. From the level of the A1 sammy and moving proximally, I then performed just local irrigation. There was no gross necrotic tissue nor gross infection seen at this level. Both wounds were then just locally irrigated. The skin was loosely closed at each site with a 4-0 nylon. Dressings were applied in the form of Xeroform, 4x4s, Conform dressing. The Esmarch tourniquet was released and there was excellent blood perfusion to the finger. At the end of the case, all counts were correct.
== END 2018-06-21 06:03 | disposition home or self-care (01) ==
LOC: ER 03:30 → MS 04:16
PROVIDERS: Admitting Provider Student in an Organized Health Care Education/Training Program; Emergency Provider Emergency Medicine; PCP Family Medicine; Visit Provider Student in an Organized Health Care Education/Training Program
PROC: 0LB80ZZ Excision of Left Hand Tendon, Open Approach (ICD-10-PCS; CPT 26145; principal; 2018-06-20 12:00)
DX: M65.142 Other infective (teno)synovitis, left hand (principal); B95.61 Methicillin susceptible Staphylococcus aureus infection as the cause of diseases classified elsewhere
CPT/HCPCS: 26145; 80048; 87077; 90471; 96365; 96368; 96375; 99220; 99285; NC; 73140; 85025; 86140; 87070; 87075; 87186; 87205; 99284; G0378; J0696; J1100; J1885; J2405; J3010; J7620

== ENCOUNTER 2018-08-30 00:37 | Outpatient (CLI) | payer MEDICAID, SELFPAY ==
--- NOTE | 2018-08-30 08:27 | DI.MRI_ITS ---
SYMPTOM/DIAGNOSIS: LT LATERAL EPICONDYLITIS, M77.12,DECREASED STRENGTH LEFT ELBOW MRI: Routine noncontrast examination was performed. There are no priors for comparison. There is normal marrow signal. No evidence of an occult fracture or avascular necrosis. The common flexor tendon appears unremarkable. There is mild hyperintense signal seen in the common extensor tendon. No evidence of a full thickness tear is seen. The biceps tendon appears unremarkable. The articular cartilage is grossly unremarkable. No significant joint effusion is seen. The muscles show normal signal and size. No significant muscular atrophy is identified. The medial and lateral ligaments of the elbow are intact. No focal fluid collection or soft tissue mass is appreciated. IMPRESSION: Hyperintense signal seen in common extensor tendon consistent with lateral epicondylitis. No evidence of a full thickness tear is seen.
--- NOTE | 2018-08-30 16:28 | DI.VRAD_ITS ---
EXAM: MR Left Upper Extremity Joint Without Contrast, Elbow. EXAM DATE/TIME: 08/30/2018 9:21 AM CLINICAL HISTORY: 38 years old, male; Pain; Elbow; Left; Patient HX: Left lateral epicondylitis TECHNIQUE: Imaging protocol: MR of the Left upper extremity without intravenous contrast. Exam focused on the elbow. COMPARISON: No relevant prior studies available. FINDINGS: Increased T2 signal and minimal thickening in the common extensor tendon tear consistent with inflammation/partial tearing. No full-thickness tear. No bone marrow edema or fracture. No significant joint effusion. IMPRESSION: Lateral epicondylitis. Dictated and Authenticated by: Sal Borjas MD. Ordering:JOAQUINA Marcelo MD
== END 2018-08-30 00:57 ==
PROVIDERS: PCP Family Medicine; Visit Provider Student in an Organized Health Care Education/Training Program
DX: M77.12 Lateral epicondylitis, left elbow (principal)
CPT/HCPCS: 73221

== ENCOUNTER 2018-09-20 09:05 | Outpatient (CLI) | payer MEDICAID, SELFPAY ==
[2018-09-20 10:50] LABS: Abs Immature Grans 0.01 k/cumm (0.0-0.09); Absolute Basophil Count 0.03 k/cumm (0.0-0.2); Absolute Lymphocyte Count 2.85 k/cumm (1.2-3.4); Absolute Monocyte Count 0.78 k/cumm (0.11-0.7); Absolute Neutrophil Count 5.13 k/cumm (1.2-6.7); Basophils % 0.3; Eosinophils % 3.3; HCT 46.7 % (40.0-50.0); HGB 15.5 g/dL (13.5-17.5); Immature Grans % 0.1; Lymphocytes % 31.3; Mean Corp. HGB Concentration 33.2 g/dL (32.0-36.0); Mean Corpuscular Volume 90.5 fL (80-95); Mean Platelet Volume 10.8 fL (8.0-11.0); Monocytes % 8.6; Neutrophils % 56.4; Platelet Count 290 x1000/uL (130-400); RBC 5.16 m/cumm (4.50-6.00); RBC Distribution Width 13.8 % (11.8-14.1)
[2018-09-20 11:01] LABS: ALT 35 U/L (12-78); AST 20 U/L (15-37); Albumin 4.3 g/dL (3.4-5.0); Alkaline Phosphatase 77 U/L (46-116); Anion Gap 11.6 mmol/L (3-11); BUN 10 mg/dL (7-18); Bilirubin, Total 0.4 mg/dL (0.2-1.0); CO2 24.4 mmol/L (21.0-32.0); CREATININE 0.68 mg/dL (0.70-1.30); Calcium 9.6 mg/dL (8.5-10.1); Chloride 104 mmol/L (98-107); Glucose 99 mg/dL (70-100); Potassium 4.4 mmol/L (3.5-5.1); Sodium 140 mmol/L (136-145); Total Protein 7.9 g/dL (6.4-8.2)
[2018-09-20 11:30] LABS: ESR 5 MM/HR (0-15)
[2018-09-20 17:15] LABS: CRP, High Sensitivity 1.11 mg/L
[2018-09-21 11:17] LABS: Lyme Ab w Rflx to Lyme Confirm Negative
[2018-09-22 23:25] LABS: Anaplasma phagocytophilum Negative (Negative); B. miyamotoi PCR Negative (Negative); Babesia divergens/MO-1 Negative (Negative); Babesia duncani Negative (Negative); Babesia microti Negative (Negative); Ehrlichia chaffeensis Negative (Negative); Ehrlichia ewingii/canis Negative (Negative); Ehrlichia muris eauclairensis Negative (Negative)
== END 2018-09-20 09:25 ==
PROVIDERS: PCP Family Medicine; Visit Provider Nurse Practitioner Family
DX: M25.50 Pain in unspecified joint (principal)
CPT/HCPCS: 36415; 80053; 85652; 86141; 85025; 86618; 87798

== ENCOUNTER 2019-04-13 09:55 | Emergency (ER) | payer MEDICAID, SELFPAY ==
[2019-04-13 09:58] VITALS: BP 132/83; PULSE 83; RESP 20; TEMP 36.8; O2SAT 99
--- NOTE | 2019-04-13 10:16 | W.ED.GENAD ---
Discharge Plan Disposition Patient Disposition: HOME Condition: Improving Discharge Details Chief Complaint: DentalOral Clinical Impression: Infected dental caries Primary Care Provider: James Barajas ED Provider: Blake Sherman Home Meds and New Rx's Prescriptions: New penicillin V potassium 500 mg tablet 500 mg PO TID 10 Days Qty: 30 RF: 0 Continued pregabalin 75 mg capsule 75 mg PO BID Qty: 90 RF: 0 fluoxetine [Prozac] 40 MG capsule 40 mg PO DAILY Qty: 90 RF: 1 ibuprofen 600 mg tablet 600 mg PO TID PRNQty: 90 RF: 3 baclofen 10 mg tablet 10 mg PO PRN PRN (Reason: muscle spasm) RF: 0 Discharge Instructions Instructions: Dental Caries (ED) Additional Instructions: Continue warm salt water gargles Call dentistry office for a follow-up appointment this week. Take penicillin as prescribed. Next dose of ibuprofen will be in 6 hours time. May use Tylenol 650 mg up to 4 times daily. Ibuprofen 800 mg up to 3 times daily. May apply warm moist heat to area to reduce discomfort. Return if you have worsening swelling, pain, change to voice or swallowing ability, or any other acute concerns Medical Decision Making 38-year-old male with poor dentition presents from home with his . Has had 2 days of left facial swelling and left sided maxillary pain. He has a number of dental caries. There is no developing area of fluctuance. I will treat with a course of penicillin. He understands he needs to follow-up with [facility] for recheck. He is given Toradol IM for discomfort after declining intraoral dental block. He understands homecare as well as follow-up and return precautions. HPI General Mode of arrival: ambulatory. Date/Time Provider Initiated Documentation: 04/13/19 09:56. Limitations to Documentation: no limitations. Information obtained by: patient. History of Present Illness 38 year old M presents to the emergency department with the chief complaint of Left dental pain 2 days, described as moderate, Quality is described as dull and constant, and is localized to the face and left. Patient reports no radiation. Patient started experiencing this day(s) and it has been constant. No relieving factors improve symptom(s), No exacerbating factors reported . Patient did receive the following treatments prior to arrival, NSAID Related Data Home Medications Medication Instructions Recorded Confirmed fluoxetine [Prozac] 40 mg PO DAILY #90 tab-cap 01/15/18 04/13/19 ibuprofen 600 mg PO TID PRN #90 tab 06/20/18 04/13/19 pregabalin 75 mg capsule 75 mg PO BID #90 cap 04/02/19 04/13/19 baclofen 10 mg PO PRN PRN 04/13/19 04/13/19 penicillin V potassium 500 mg PO TID 10 Days #30 tab 04/13/19 Previous Rx's Medication Instructions Recorded fluoxetine [Prozac] 40 mg PO DAILY #90 tab-cap 01/15/18 ibuprofen 600 mg PO TID PRN #90 tab 06/20/18 pregabalin 75 mg capsule 75 mg PO BID #90 cap 04/02/19 penicillin V potassium 500 mg PO TID 10 Days #30 tab 04/13/19 Allergies Allergy/AdvReac Type Severity Reaction Status Date / Time No Known Allergies Allergy Unverified 04/13/19 10:02 General Stated Complaint: DentalOral HANNAH: 3 Review of Systems Narrative: No drooling, no change to voice, history of previous dental infections and poor dental baseline. Follows with [facility]. PFS Medical History Depression (Chronic) Hyperlipidemia (Acute) Left lateral epicondylitis (Acute) Tobacco use (Acute) Surgical History Appendectomy (Inactive 12/01/17) Colonoscopy - IV Sedation (Inactive 02/24/17) Colonoscopy - MAC (Inactive 04/11/17) H/O neck surgery (Inactive) Family History Father Essential hypertension Hyperlipidemia Grandmother Colon cancer Social History Smoking/Tobacco Use Status: Current every day Drug use: Never Do you feel safe in your relationship?: Yes Exam Narrative Exam Narrative: GEN: awake, alert, oriented 3. Pleasant, well groomed, interactive. HEAD: Normocephalic, atraumatic ENT: Mucous membranes moist, oropharynx unremarkable except numerous missing teeth and large dental caries, mild left cheek tenderness intraoral. No significant fluctuance. Mild left facial swelling. tympanic membranes clear bilaterally. External ear exam unremarkable EYES: PERRL, EOMI NECK: Full ROM, no TAZ, no menigismus CHEST/RESP: Nontender, clear to auscultation bilateral, no wheeze/rhonchi/rales CARDIOVASCULAR: RRR, no murmur, rub wolf. 2+ Rad pulse bilateral EXT: Full ROM, no edema, no rash Neuro: Grossly normal neurologic exam, conversant, interactive. Psych: Speech fluent, thoughts congruent, affect normal Course Vital Signs Vital signs: Vital Signs Temperature 36.8 C 04/13/19 09:58 Pulse 83 04/13/19 09:58 Respiratory Rate 20 04/13/19 09:58 Blood Pressure 132/83 04/13/19 09:58 Pulse Oximetry 99 04/13/19 09:58 Temperature 36.8 C 04/13/19 09:58 Temperature Source Skin 04/13/19 09:58 Pulse 83 04/13/19 09:58 Respiratory Rate 20 04/13/19 09:58 Respiratory Effort Non-Labored 04/13/19 10:06 Blood Pressure 132/83 04/13/19 09:58 Blood Pressure Position Sitting 04/13/19 09:58 Pulse Oximetry 99 04/13/19 09:58 Oxygen Delivery Method Room Air 04/13/19 09:58 Oxygen Flow Rate 0 04/13/19 09:58 Pain Level 9 04/13/19 09:58 Comment 04/13/19 09:58
[2019-04-13] MEDS: Penicillin V POTASSIUM 500 MG TAB PO (10:25)
[2019-04-13] MEDS: Ketorolac 60 MG/2 ML VIAL IM (10:26)
[2019-04-13 10:34] VITALS: BP 132/83; PULSE 83; RESP 20; TEMP 36.8; O2SAT 99
== END 2019-04-13 10:37 | disposition home or self-care (01) ==
PROVIDERS: Emergency Provider Emergency Medicine; PCP Family Medicine
DX: K04.7 Periapical abscess without sinus (principal)
CPT/HCPCS: 96372; 99284; J1885

== ENCOUNTER 2019-04-14 19:00 | Emergency (ER) | payer MEDICAID, SELFPAY ==
[2019-04-14 19:05] VITALS: BP 149/89; PULSE 83; RESP 18; TEMP 37.5; O2SAT 99
--- NOTE | 2019-04-14 19:10 | W.ED.GENAD ---
Discharge Plan Disposition Patient Disposition: HOME Condition: Good Discharge Details Chief Complaint: DentalOral Clinical Impression: Preseptal cellulitis of left eye Primary Care Provider: James Barajas ED Provider: Reuben Burnham Home Meds and New Rx's Prescriptions: New clindamycin HCl 150 mg capsule 450 mg PO QID 10 Days Qty: 120 RF: 0 Discontinued penicillin V potassium 500 mg tablet 500 mg PO TID 10 Days Qty: 30 RF: 0 No Action pregabalin 75 mg capsule 75 mg PO BID Qty: 90 RF: 0 fluoxetine [Prozac] 40 MG capsule 40 mg PO DAILY Qty: 90 RF: 1 ibuprofen 600 mg tablet 600 mg PO TID PRNQty: 90 RF: 3 baclofen 10 mg tablet 10 mg PO PRN PRN (Reason: muscle spasm) RF: 0 Discharge Instructions Instructions: Periorbital Cellulitis in Adults (ED) Additional Instructions: You have a mild infection on the outer structures around her eye. Please take the new antibiotic clindamycin as directed. You can stop taking the penicillin at this time. Please eat yogurt with live cultures to prevent diarrhea. 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 Please continue to take 1000 mg of Tylenol every 6 hours and 600 mg of ibuprofen every 6 hours as needed for pain. If you notice any worsening of your symptoms, or any new symptoms such as worsening pain with movement of your eye, increased vision changes, vomiting, diarrhea, fever, chills, shortness of breath, chest pain, numbness, weakness, or fainting , please return immediately to the emergency department for reevaluation. As always, it was a pleasure participating in your medical care today. [facility] [address] [place] [id number] Referrals: [facility] [OTHER] - Discharge Data Discharge Date/Time-TO BE ENTERED AT DEPARTURE: 04/14/19 21:35 Medical Decision Making <Chris Yancey MD - Last Filed: 04/15/19 08:09> 38-year-old gentleman with a history of dental caries who returns for progressive left-sided facial pain extending to his periorbital region associated with known left upper anterior dental caries. Has been started on oral penicillin yesterday for more focal dental symptoms. Since starting this medication, has had progressive pain and periorbital swelling. Exam negative for evidence of orbital cellulitis with no proptosis or limited extraocular motion. Treat empirically with oral clindamycin. Orbital CT scan with IV contrast performed. Care transferred to Dr. Burnham with reevaluation, CT findings pending, and disposition pending. Medical Records Medical records reviewed: Yes I reviewed the patient's medical records. <Reuben Burnham DO - Last Filed: 04/14/19 21:50> Patient was signed out to be my my colleague Chris Gupta. Please refer to his note for the initial HPI, assessment, and plan. Plan was to reevaluate after CT results to rule out post septal cellulitis. CT scan results and per virtual radiology shows no evidence of post septal cellulitis. There is mild periorbital cellulitis. Visual acuity exam was performed and the patient demonstrates 20/30 on the right, 20/70 on the left. 20/25 bilaterally. Reassessment demonstrates no evidence of proptosis, no clouding of the cornea. No significant tenderness on palpation of the eye. Range of motion, visual akhtar, are all intact. Pupils are equal round reactive bilaterally with no sluggishness. No ophthalmoplegia. No afferent pupillary defect or relative afferent pupillary defect. He currently demonstrates no clinical evidence of an emergent ophthalmologic problem at this time I spent a long time discussing with the patient and his family member at bedside signs and symptoms concerning for emergent orbital cellulitis. He states that he [facility] a [facility] the [facility], and I recommended close follow-up there, however I also discussed that I will be placing a referral with the [facility] to make sure that he is able to get some sort of follow-up very shortly. We give the first dose of clindamycin here, as well as a to go pack so he can take it tomorrow morning. I have extensively reviewed the treatment plan and discharge instructions with the patient and their family. I have addressed all patient concerns at this time. The patient and family was made aware of what symptoms to monitor for that would warrant a return to the emergency department. Discussed the plan with the patient and family, they demonstrate verbal understanding and agreement with our assessment and plan at this time. HPI <Chris Yancey MD - Last Filed: 04/15/19 08:09> 48-year-old gentleman with a history of depression, hyperlipidemia, and dental caries. Evaluated here yesterday for left upper gingival pain/dental caries. Discharged with a prescription for penicillin. Since his discharge, he has had worsening pain extending to his left periorbital region and endorses visual changes today, including being unable to read his cell phone using his left eye. He denies fever/chills, headache, or pain with extraocular motion. He also denies significant ear pain or hearing loss. He has no hypopharyngeal pain or difficulty swallowing. He denies significant neck pain. Has been compliant with his antibiotics and taking ibuprofen/Tylenol for analgesia without significant pain relief. General Date/Time Provider Initiated Documentation: 04/14/19 19:40. Related Data Home Medications Medication Instructions Recorded Confirmed fluoxetine [Prozac] 40 mg PO DAILY #90 tab-cap 01/15/18 04/14/19 ibuprofen 600 mg PO TID PRN #90 tab 06/20/18 04/14/19 pregabalin 75 mg capsule 75 mg PO BID #90 cap 04/02/19 04/14/19 baclofen 10 mg PO PRN PRN 04/13/19 04/14/19 clindamycin HCl 450 mg PO QID 10 Days #120 cap 04/14/19 Previous Rx's Medication Instructions Recorded fluoxetine [Prozac] 40 mg PO DAILY #90 tab-cap 01/15/18 ibuprofen 600 mg PO TID PRN #90 tab 06/20/18 pregabalin 75 mg capsule 75 mg PO BID #90 cap 04/02/19 clindamycin HCl 450 mg PO QID 10 Days #120 cap 04/14/19 Allergies Allergy/AdvReac Type Severity Reaction Status Date / Time No Known Allergies Allergy Unverified 04/14/19 19:11 General Stated Complaint: DentalOral HANNAH: 4 <Reuben Burnham DO - Last Filed: 04/14/19 21:50> 48-year-old gentleman with a history of depression, hyperlipidemia, and dental caries. Evaluated here yesterday for left upper gingival pain/dental caries. Discharged with a prescription for penicillin. Since his discharge, he has had worsening pain extending to his left periorbital region and endorses visual changes today, including being unable to read his cell phone using his left eye. He denies fever/chills, headache, or pain with extraocular motion. He also denies significant ear pain or hearing loss. He has no hypopharyngeal pain or difficulty swallowing. He denies significant neck pain. Has been compliant with his antibiotics and taking ibuprofen/Tylenol for analgesia without significant pain relief. Review of Systems <Chris Yancey MD - Last Filed: 04/15/19 08:09> All systems reviewed & are unremarkable except as noted in HPI and below PFSH <Chris Yancey MD - Last Filed: 04/15/19 08:09> Medical History Depression (Chronic) Hyperlipidemia (Acute) Left lateral epicondylitis (Acute) Tobacco use (Acute) Surgical History Appendectomy (Inactive 12/01/17) Colonoscopy - IV Sedation (Inactive 02/24/17) Colonoscopy - MAC (Inactive 04/11/17) H/O neck surgery (Inactive) Family History Father Essential hypertension Hyperlipidemia Grandmother Colon cancer Social History Smoking/Tobacco Use Status: Current every day Drug use: Never Do you feel safe at home: Yes Do you feel safe in your relationship?: Yes Exam <Chris Yancey MD - Last Filed: 04/15/19 08:09> Narrative Exam Narrative: Nursing note and vital signs have been reviewed and noted. GENERAL: alert, active, no acute distress, well -hydrated, well-nourished HEENT: atraumatic/normocephalic, PERRLA, mild left periorbital soft tissue swelling. PERRLA, EOMI, conjunctiva clear, external ears/canals normal, nasal mucosa normal; oropharynx significant for dental caries upper incisor and canine with gingival tenderness. No significant gingival swelling or evidence of soft tissue abscess. Hypopharynx is negative with midline uvula. NECK: supple, full range of motion CARDIOVASCULAR: nl pulses, no edema PULMONARY: nl effort, no audible wheezing or stridor ABDOMEN: non-distended EXTREMITY: normal muscle tone, all joints with FROM, no deformity NUERO: normal mentation, moving all extremities, normal stance and gait, PSYCH: alert and oriented SKIN: no new rashes or lesions Course <Chris Yancey MD - Last Filed: 04/15/19 08:09> Vital Signs Vital signs: Vital Signs Temperature 99.5 F 04/14/19 19:05 Pulse 83 04/14/19 19:05 Respiratory Rate 18 04/14/19 19:05 Blood Pressure 149/89 H 04/14/19 19:05 Pulse Oximetry 99 04/14/19 19:05 Temperature 99.5 F 04/14/19 19:05 Temperature Source Temporal Artery Scan 04/14/19 19:05 Pulse 83 04/14/19 19:05 Respiratory Rate 18 04/14/19 19:05 Respiratory Effort Non-Labored 04/14/19 19:05 Blood Pressure 149/89 H 04/14/19 19:05 Blood Pressure Position Sitting 04/14/19 19:05 Pulse Oximetry 99 04/14/19 19:05 Oxygen Delivery Method Room Air 04/14/19 19:05 Oxygen Flow Rate 0 04/14/19 19:05 Pain Level 10 04/14/19 19:05
[2019-04-14] MEDS: Omnipaque 350 MG/ML 100 ML BTL IJ (19:47)
--- NOTE | 2019-04-14 20:05 | DI.CT_ITS ---
EXAM: CT ORBITS W CLINICAL HISTORY: orbital cellulitis with increasing eye pain TECHNIQUE: The exam was performed according to the usual protocol with 100 cc's of Omnipaque 350. COMPARISON: No exams were available for comparison FINDINGS: There is mild left periorbital swelling. Soft tissues are otherwise unremarkable. The orbits and retro-orbital soft tissues are unremarkable. Bones are intact. There is mucosal thickening in the left maxillary sinus. The remaining visualized paranasal sinuses are clear. No focal fluid collection is seen in the soft tissues to suggest an abscess. IMPRESSION: Left periorbital cellulitis. No abscess.
[2019-04-14] MEDS: Clindamycin 300 MG CAP PO (20:12)
--- NOTE | 2019-04-14 21:16 | DI.VRAD_ITS ---
PROCEDURE INFORMATION: Exam: CT Orbits With Contrast Exam date and time: 04/14/2019 7:21 PM Clinical history: 38 years old, male; Eye pain and face pain; Left; Patient HX: Orbital cellulitus w/increasing eye pain /ro pr; Additional info: Toothache 2 days - left eye pain/visual changes TECHNIQUE: Imaging protocol: Computed tomography images of the orbits with intravenous contrast. Radiation optimization: All CT scans at this facility use at least one of these dose optimization techniques: automated exposure control; mA and/or kV adjustment per patient size (includes targeted exams where dose is matched to clinical indication); or iterative reconstruction. Contrast material: OMNI 350; Contrast volume: 100 ml; Contrast route: IV; COMPARISON: No relevant prior studies available. FINDINGS: Orbits: Mild left periorbital soft tissue swelling most compatible with preseptal cellulitis. No postseptal extension. Sinuses: Mucosal thickening involving the left maxillary sinus. Bones/joints: No acute fracture. Soft tissues: No radiopaque foreign body. No abscess. IMPRESSION: Mild left periorbital soft tissue swelling most compatible with preseptal cellulitis. No postseptal extension. No radiopaque foreign body. No abscess. Dictated and Authenticated by: Catarino Colmenares MD. Ordering:MYRON Perez MD
--- NOTE | 2019-04-14 21:30 | NUR.NOTE ---
Nursing Note:FAXED DR SANCHEZ AND REFERAL TO [facility] 04/14/19
[2019-04-14] MEDS: Clindamycin 150 MG CAP, 12 CAPS/BTL 450 MG PO (21:36)
== END 2019-04-14 21:35 | disposition home or self-care (01) ==
PROVIDERS: Emergency Provider Student in an Organized Health Care Education/Training Program; PCP Family Medicine
DX: L03.213 Periorbital cellulitis (principal); K02.9 Dental caries, unspecified
CPT/HCPCS: 36415; 99285; 70481; 99284; J3490

== ENCOUNTER 2019-06-18 11:23 | Outpatient (CLI) | payer MEDICAID, SELFPAY ==
[2019-06-18 11:55] VITALS: BP 132/89; PULSE 74; RESP 16; TEMP 37.3; O2SAT 99
--- NOTE | 2019-06-18 12:30 | PDOC.PAIN ---
Pain Clinic Procedure Note Procedure Note Procedure Note: Lumbar/Sacral Medial Branch Blocks ALONDRA NESBITT has been referred to the [facility] for lumbar/sacral medial branch blocks. pre-operative diagnosis: lumbar spondylosis post-operative diagnosis: same as above Patient was interviewed and the medical record reviewed. There were no medical, pharmacologic, radiographic or other structural contraindications to attempting fluoroscopically guided local anesthetic lumbar/sacral medial branch blocks. Risks and expected side effects as well as potential benefit of the procedure were reviewed and voiced concerns addressed. The printed consent form was signed and witnessed. Standard time-out procedure was performed. Patient was placed in the prone position on the fluoroscopy table and automated blood pressure cuff and pulse oximeter applied. The skin entry points for approaching the anatomic target points of the segmental medial branches of bilateral L3, L4, L5-DR were identified with anfluoroscopy and marked. Following thorough Chlorhexadine preparation of the skin and draping, a 25 gauge spinal needle was placed under fluoroscopic guidance down on to the target point for each respective segmental medial branch.Position was confirmed in A/P, oblique and lateral views with 0.25ml of omnipaque 240. Then 0.5ml of 0.5% Bupivacaine was injected at each site. Vital signs were stable throughout the procedure and were as recorded in the docflowsheet by the nursing staff. Follow up plans and appointments were discussed and was instructed to keep careful note of how the usual pain was modified by these injections. Specifically was asked to keep a pain diary for the next 24 hours using a numeric pain scale of 0-10 and report these results at the follow-up visit. Post procedure instruction was given as documented in the nursing documentation and having met discharge criteria. Patient was discharged from the [facility]. Based on the medial branches blocked today, if the patient has adequate relief and we are able to proceed to radiofrequency ablation, the treatment should result in the denervation of the bilateral L4-5 and L5-S1 facet joints. We would expect to denervate a total of 4 facets during the radiofrequency ablation. COMMENTS: pre-procedure pain level reported as 5 out of 10 and post procedure pain level 0 out of 10. I personally performed the entire procedure Norma Dubon MD Pain Management CC: James Barajas MD
[2019-06-18] MEDS: Omnipaque 240 MG/ML 50 ML BTL IJ (12:34)
[2019-06-18] MEDS: Bupivacaine 0.5% Pres-Free 10 ML VIAL IJ (12:34)
[2019-06-18 12:35] VITALS: BP 124/90; PULSE 75; RESP 14; O2SAT 100
--- NOTE | 2019-06-18 13:19 | DI.RAD_ITS ---
EXAM: XR PAIN CLINIC LUMBAR SP 2V CLINICAL HISTORY: Dx: Lumbar Spondylosis TECHNIQUE: Realtime digital imaging was performed. Fluoro time: 66.9 sec, 11.27 mGy COMPARISON: No exams were available for comparison FINDINGS: Fluoroscopy was utilized by Dr. Dubon during the performance of a lumbar medial branch block. Please re janet to the procedure report for complete details.
== END 2019-06-18 11:43 ==
PROVIDERS: PCP Family Medicine; Visit Provider Internal Medicine
DX: M47.816 Spondylosis without myelopathy or radiculopathy, lumbar region (principal)
CPT/HCPCS: 64493; 64494; 72100; Q9967

== ENCOUNTER 2019-07-10 12:27 | Outpatient (CLI) | payer MEDICAID, SELFPAY ==
[2019-07-10 12:33] VITALS: BP 110/71; PULSE 78; RESP 18; TEMP 36.5; O2SAT 97
--- NOTE | 2019-07-10 13:17 | PDOC.PAIN_ITS ---
Pain Clinic Procedure Note Procedure Note Procedure Note: Lumbar/Sacral Medial Branch Blocks pre-operative diagnosis: lumbar spondylosis post-operative diagnosis: same as above ALONDRA NESBITT has been referred to the [facility] for lumbar/sacral medial branch blocks. COMMENTS: patient reported previous bilateral lumbar MBB provided significant pain relief of his usual back pain, however, once medication worn off, he reported worsening back pain that lasted for days. Patient was interviewed and the medical record reviewed. There were no medical, pharmacologic, radiographic or other structural contraindications to attempting fluoroscopically guided local anesthetic lumbar/sacral medial branch blocks. Risks and expected side effects as well as potential benefit of the procedure were reviewed and voiced concerns addressed. The printed consent form was signed and witnessed. Standard time-out procedure was performed. Patient was placed in the prone position on the fluoroscopy table and automated blood pressure cuff and pulse oximeter applied. The skin entry points for approaching the anatomic target points of the segmental medial branches of bilateral L3, L4, L5-DR were identified with anfluoroscopy and marked. Following thorough Chlorhexadine preparation of the skin and draping and 1% lidocaine infiltration of the skin entry points and subcutaneous tissues, a 25 gauge spinal needle was placed under fluoroscopic guidance down on to the target point for each respective segmental medial branch.Position was confirmed in A/P, oblique and lateral views with 0.25ml of omnipaque 240. Then 0.5ml 2% Lidocaine was injected at each site. Vital signs were stable throughout the procedure and were as recorded in the docflowsheet by the nursing staff. Follow up plans and appointments were discussed and was instructed to keep caref ul note of how the usual pain was modified by these injections. Specifically was asked to keep a pain diary for the next 24 hours using a numeric pain scale of 0-10 and report these results at the follow-up visit. Post procedure instruction was given as documented in the nursing documentation and having met discharge criteria. Patient was discharged from the [facility]. Based on the medial branches blocked today, if the patient has adequate relief and we are able to proceed to radiofrequency ablation, the treatment should result in the denervation of the bilateral L4-5 and L5-S1 facet joints. We would expect to denervate a total of 4 facets during the radiofrequency ablation. COMMENTS: patient tolerated procedure well today. I performed the entire procedure. Norma Dubon MD Pain Management CC: James Barajas MD
[2019-07-10] MEDS: Omnipaque 240 MG/ML 50 ML BTL IJ (13:36)
--- NOTE | 2019-07-10 13:40 | DI.RAD_ITS ---
EXAM: XR PAIN CLINIC LUMBAR SP 2V CLINICAL HISTORY: Dx: Lumbar Spondylosis TECHNIQUE: Realtime digital imaging was performed. Fluoroscopy was utilized by Dr. Dubon during the per formance of a lumbar medial branch block. COMPARISON: No exams were available for comparison FINDINGS: Please refer to the procedure report for complete details. Fluoro Time: 59 seconds
[2019-07-10] MEDS: Lidocaine 2% Pres-Free 5 ML VIAL IJ (13:48)
[2019-07-10 13:49] VITALS: BP 124/80; PULSE 81; RESP 14; O2SAT 98
== END 2019-07-10 12:47 ==
PROVIDERS: PCP Family Medicine; Visit Provider Internal Medicine
DX: M47.816 Spondylosis without myelopathy or radiculopathy, lumbar region (principal)
CPT/HCPCS: 64493; 64494; 72100; Q9967

== ENCOUNTER 2019-08-20 09:00 | Outpatient (CLI) | payer MEDICAID, SELFPAY ==
[2019-08-20 09:27] VITALS: BP 124/84; PULSE 69; RESP 16; TEMP 36.6; O2SAT 98
--- NOTE | 2019-08-20 10:18 | PDOC.PAIN ---
Pain Clinic Procedure Note Procedure Note Procedure Note: Bilateral Lumbar Radiofrequency with Coolief Machine PROCEDURE NOTE Date of Service: August 20, 2019 Patient: DELICIAALONDRA Provider: Norma Dubon MD Pre Operative Diagnosis: lumbar spondylosis Post Operative Diagnosis: same as above Comment: patient received excellent pain relief from prior diagnostic medial branch nerve block. Radiofrequency Ablation of medial branches - Bilateral L3, L4, L5-DR ALONDRA NESBITT was brought into the fluoroscopy suite and positioned into the prone position on the fluoroscopy table and allowed to adjust to a position of comfort. A grounding pad was placed on the [right/left] thigh. The lumbar region was widely prepped with a chloraprep solution, allowed to air dry and draped in standard sterile surgical fashion. Local anesthesia was provided by 15 mL of 1 % lidocaine delivered with a 25g needle. A 17g 100mm radiofrequency introducer needle was placed to the planned anatomic targets guided with intermittent fluoroscopy with a perpendicular approach to terminally place at the junction of the superior articular process and the transverse process of the bilateral L3, L4, L5 and the base of the sacral ala on the bilateral for the L5 medial branch nerve. The stylets were removed and radiofrequency probes with a 4mm active tip were then inserted. Needle tip position of the probes was verified in the AP, oblique, and lateral views. At each site, the medial branch nerve was stimulated at 2 Hz to a maximum 1-2 volts determined to finalize safe needle and electrode placement. The patient was awake and responsive during this portion of the procedure. Each target was anesthetized with 1 mL of 2% lidocaine for anesthesia for lesioning and then each target was lesioned at 80 degrees Celsius for 2 minutes and 30 seconds. Tissue impedences were noted to be between 250 and 500 Ohms. Electrodes and needles were then removed and bandages placed over the needle placement sites, the patient then returned to the supine position on a stretcher and transported to the recovery room without hemodynamic, neurologic, or allergic reactions. Fluoroscopic images were printed for hard copy recording and digitally archived. POST PROCEDURE EVALUATION: IMPRESSION: 1. patient tolerated procedure well without issue 2. on left L3, L4 MBB, patient reported sensation down left leg during lesioning, needle was repositioned, re-stimulated at 2 Hz without myotomal stimulation seen, then re-anesthesized with 2% lidocaine and lesioned for 2 minutes and 30 seconds. 3. Patient received total of 2mg of IV versed and 75mcg of IV Fentanyl Follow up plans and appointments were discussed with the ALONDRA . Post procedure instruction was given as documented in nursing documentation and having met discharge criteria, ALONDRA was [facility] from the [facility]. COMMENTS: No complications. F/U with our office as needed. I personally performed this entire procedure. Norma Dubon MD Attending Physician
[2019-08-20] MEDS: Midazolam 2 MG/2 ML VIAL IVP ×2 (10:41→11:10)
[2019-08-20] MEDS: fentaNYL 100 MCG/2 ML VIAL IVP ×3 (10:41→11:03)
[2019-08-20] MEDS: Lactated Ringers 1,000 ML 80 ML IV (10:42)
[2019-08-20] MEDS: Bupivacaine 0.5% Pres-Free 10 ML VIAL IJ (11:16)
[2019-08-20] MEDS: Lidocaine 2% Pres-Free 5 ML VIAL IJ ×2 (11:17→11:24)
[2019-08-20] MEDS: methylPREDNISolone ACETATE 40 MG/ML VIAL IJ (11:18)
[2019-08-20] MEDS: Lidocaine 1% Pres-Free 5 ML VIAL IJ (11:18)
[2019-08-20 11:27] VITALS: BP 134/83; PULSE 69; RESP 17; O2SAT 100
--- NOTE | 2019-08-20 11:27 | DI.RAD_ITS ---
EXAM: XR PAIN CLINIC LUMBAR SP 2V CLINICAL HISTORY: Dx: Lumbar Spondylosis TECHNIQUE: 2D and realtime digital imaging was performed. CONTRAST MATERIAL: Refer to procedure report. COMPARISON: No exams were available for comparison FINDINGS: Fluoroscopy was provided for Dr. Dubon during the performance of a radiofrequency ablation in the lumba r spine. Please refer to the procedure report for complete details. Fluoro time: 70.3 seconds IMPRESSION:
== END 2019-08-20 09:20 ==
PROVIDERS: PCP Family Medicine; Visit Provider Internal Medicine
DX: M47.816 Spondylosis without myelopathy or radiculopathy, lumbar region (principal)
CPT/HCPCS: 64635; 64636; 72100; J1030; J2250; J3010

== ENCOUNTER 2020-02-27 12:37 | Outpatient (CLI) | payer MEDICAID, SELFPAY ==
--- NOTE | 2020-02-27 06:00 | DI.RAD_ITS ---
EXAM: XR PAIN CLINIC LUMBAR SP 2V CLINICAL HISTORY: Bilateral L3-L5 Lumbar Radiofrequency Ablation TECHNIQUE: 2D and realtime digital imaging was performed. CONTRAST MATERIAL: Refer to procedure report. COMPARISON: No exams were available for comparison FINDINGS: Fluoroscopy was provided for Dr. Dooley during the performance of a lumbar radiofrequency ablation. P yoseph refer to the procedure report for complete details. Fluoro time: 93.8 seconds IMPRESSION:
[2020-02-27 13:24] VITALS: BP 120/68; PULSE 65; RESP 16; TEMP 37.1; O2SAT 98
[2020-02-27] MEDS: Lactated Ringers 1,000 ML 80 ML IV (14:25)
[2020-02-27] MEDS: Midazolam 2 MG/2 ML VIAL IVP (14:30)
[2020-02-27] MEDS: fentaNYL 100 MCG/2 ML VIAL IVP ×3 (14:30→14:55)
[2020-02-27 15:07] VITALS: BP 133/87; PULSE 61; RESP 13; O2SAT 100
--- NOTE | 2020-02-27 15:11 | PDOC.PAIN ---
Pain Clinic Procedure Note Procedure Note Procedure Note: [Right/Left/Bilateral] Lumbar Radiofrequency with Coolief Machine PROCEDURE NOTE Date of Service: February 27, 2020 Patient: ALONDRA NESBITT Provider: Nagi Dooley DO, MPH Pre Operative Diagnosis: Lumbosacral spondylosis Post Operative Diagnosis: Same PROCEDURE: Radiofrequency Ablation of medial branches - Bilateral L3 L4 and L5DR medial branches and the bilateral S1 lateral branches ALONDRA NESBITT was brought into the fluoroscopy suite and positioned into the prone position on the fluoroscopy table and allowed to adjust to a position of comfort. A grounding pad was placed on the [right/left] thigh. The lumbar region was widely prepped with a chloraprep solution, allowed to air dry and draped in standard sterile surgical fashion. Local anesthesia was provided by 1 mL of 2% Lidocaine delivered with a 25g needle. A 17g 100mm radiofrequency introducer needle was placed to the planned anatomic targets guided with intermittent fluoroscopy with a perpendicular approach to terminally place at the junction of the superior articular process and the transverse process of the bilateral L4 L5, the base of the sacral ala on the [right/left/bilateral] for the L5 medial branch nerve and between the sacral ala and the S1 foramen for the S1 lateral branch. The stylets were removed and radiofrequency probes with a 4mm active tip were then inserted. Needle tip position of the probes was verified in the AP, oblique, and lateral views. At each site, the medial branch nerve was stimulated at 2 Hz to a maximum 1-2 volts determined to finalize safe needle and electrode placement. The patient was awake and responsive during this portion of the procedure. Each target was anesthetized with 1-2 mL of 2% Lidocaine for anesthesia for lesioning and then each target was lesioned at 80 degrees Celsius for 2 minutes and 30 seconds. Tissue impedences were noted to be between 250 and 500 Ohms. I injected 1/4 cc of Depomedrol (40 mg/cc) and 1 cc of 0.5% Bupivacaine at each segmental nerve. Electrodes and needles were then removed and bandages placed over the needle placement sites, the patient then returned to the supine position on a stretcher and transported to the recovery room without hemodynamic, neurologic, or allergic reactions. Fluoroscopic images were printed for hard copy recording and digitally archived. Follow up plans and appointments were discussed with the ALONDRA . Post procedure instruction was given as documented in nursing documentation and having met discharge criteria, ALONDRA was discharged from the [facility]. COMMENTS: No complications. F/U with our office as needed. I personally performed this entire procedure. Nagi Dooley DO, MPH Pain Management Attending Physician
[2020-02-27] MEDS: Lidocaine 1% Pres-Free 30 ML VIAL IJ (15:26)
[2020-02-27] MEDS: Lidocaine 2% Pres-Free 5 ML VIAL IJ (15:26)
[2020-02-27] MEDS: methylPREDNISolone ACETATE 80 MG/ML VIAL IJ (15:27)
[2020-02-27] MEDS: Bupivacaine 0.5% Pres-Free 10 ML VIAL IJ (15:30)
== END 2020-02-27 12:57 ==
PROVIDERS: PCP Nurse Practitioner; Visit Provider Preventive Medicine Occupational Medicine
DX: M47.817 Spondylosis without myelopathy or radiculopathy, lumbosacral region (principal)
CPT/HCPCS: 64635; 64636; 72100; J1040; J2250; J3010

== ENCOUNTER 2020-06-04 01:39 | Outpatient (CLI) | payer MEDICAID, SELFPAY ==
--- NOTE | 2020-06-04 | DI.MRI_ITS ---
EXAM: MR LUMBAR SPINE WO CLINICAL HISTORY: CHRONIC LOW BACK PAIN,M54.5,UNRESPONSIVE TO PT AND MEDS. TECHNIQUE: Multiplanar multisequence MRI of the Lumbar spine was performed. COMPARISON: There are no plain films of the lumbar spine available at the time of this MRI interpret ation FINDINGS: Five lumbar vertebrae are presumed. Conus medullaris is at normal level. There is no evidence of conus mass nor subjacent clumping of in trathecal nerve roots to suggest arachnoiditis. The distal thecal sac appears unremarkable.There is no evidence of Tarlov intrasacral cysts nor other significant findings within the sacral canal Bones:There are no fractures nor ominous osseous lesions in the lumbar vertebral bodies and visualize d sacrum. With respect to the individual levels... T12-L1: Unremarkable L1-2: Normal disc height and signal. No disc herniation nor central canal stenosis.No foraminal steno sis L2-3: Normal disc height. No disc herniation nor central canal stenosis.No foraminal stenosis.No face t arthropathy. L3-4: Normal disc height. There is mild central subligamentous annular bulging which flattens the an terior thecal sac.. No prominent disc herniation.Mild central canal stenosis. No significant forami nal stenosis. Mild facet degenerative changes. L4-5: Normal disc height with mild decreased disc hydration signal. There is annular bulging central ly which indents the anterior thecal sac, and there is a superimposed small disc protrusion at this l evel central and slightly right of center which extends posteriorly 3 millimeters and is 11 millimete rs wide. This slightly indents the anterior thecal sac. Mild central canal stenosis. There are mil d degenerative changes in the facet joints. Mild bilateral foraminal stenosis. L5-S1: Preserved disc height and signal. There is abnormal high signal in the posterior subligamento us annulus at and slightly left of center consistent with an annular tear evident at this level. Thi s extends posteriorly 3 millimeters and is 14 millimeters wide but does not indent the thecal sac and adjacent nerve roots. The central canal dimensions are lower normal at this level. There is mild b ilateral foraminal stenosis at this level. No facet arthropathy. No listhesis. No L5 pars defects. Soft tissues: paraspinal soft tissues appear unremarkable. IMPRESSION: 1. Mild central spinal canal stenosis at L3-4 and L4-5, as described above. 2. At L4-5 level there is a central-slightly right of center disc protrusion as described above, this superimposed upon annular bulging. 3. Posterior annular tearing at L5-S1 level with bulging of the posterior longtitudinal ligament at t his level but no significant central canal stenosis. 4. There is mild bilateral foraminal stenosis at L4-5 and L5-S1 levels. DATA REPOSITORY:
--- NOTE | 2020-06-04 09:59 | DI.RAD_ITS ---
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 TECHNIQUE: 2D digital imaging was performed. COMPARISON: No exams were available for comparison FINDINGS: There is no evidence of fracture or fluid in the paranasal sinuses although there is an there are mul tiple new mucosal densities on the medial wall the left maxillary sinus which are either polyps or po st inflammatory retention cysts, not associated with acute fluid level. The opposite-right maxillary sinus is clear as are the visualized frontal sinuses. There are no fractures of the orbits and no radiopaque foreign body in the region of the orbits. IMPRESSION: No radiopaque density in the region of the orbits. Polyps or retention cysts in the left maxillary sinus as described above. If clinically indicated fo llow-up sinus CT scan could be performed. DATA REPOSITORY: RADIATION DOSE DELIVERED:
== END 2020-06-04 01:59 ==
PROVIDERS: PCP Nurse Practitioner; Visit Provider Nurse Practitioner Family
DX: G89.29 Other chronic pain (principal); M54.5 Low back pain; M48.061 Spinal stenosis, lumbar region without neurogenic claudication; M51.26 Other intervertebral disc displacement, lumbar region; Z01.89 Encounter for other specified special examinations; M48.07 Spinal stenosis, lumbosacral region
CPT/HCPCS: 70200; 72148

== ENCOUNTER 2020-06-24 11:40 | Outpatient (CLI) | payer MEDICAID, SELFPAY ==
[2020-06-24 11:46] VITALS: BP 129/84; PULSE 61; RESP 17; TEMP 37.1; O2SAT 97
--- NOTE | 2020-06-24 12:23 | DI.RAD_ITS ---
EXAM: XR PAIN CLINIC LUMBAR SP 2V CLINICAL HISTORY: Dx:Lumbar Radiculopathy TECHNIQUE: 2D and realtime digital imaging was performed. CONTRAST MATERIAL: Refer to procedure report. COMPARISON: No exams were available for comparison FINDINGS: Fluoroscopy was provided for Dr. Dooley during the performance of a lumbar epidural steroid injection. Please refer to the procedure report for complete details. Fluoro time: 23.9 seconds IMPRESSION:
[2020-06-24 12:25] VITALS: BP 127/84; PULSE 67; RESP 12; O2SAT 98
[2020-06-24] MEDS: methylPREDNISolone ACETATE 80 MG/ML VIAL IJ (12:26)
[2020-06-24] MEDS: Omnipaque 240 MG/ML 50 ML BTL IJ (12:26)
--- NOTE | 2020-06-24 13:45 | PDOC.PAIN_ITS ---
Pain Clinic Procedure Note Procedure Note Procedure Note: Date of service: 06/24/20 Lumbar Epidural Steroid Injection Procedure Note COMMENTS: He was previous seen in our office and has had a recent lumbar MRI. DX: Lumbosacral radiculopathy ALONDRA NESBITT has been referred to the [facility] for lumbar epidural steroid injection. The patient was greeted by the nurse who verified patients name and . Patient was then taken to the fluoroscopy suite. The patient was interviewed and the medial record reviewed. There were no medical, pharmacologic, radiographic, or other structural contraindications to attempting fluoroscopically guided lumbar epidural steroid injection. Risks and expected side effects as well as potential benefits of the procedure were reviewed and voiced concerns expressed. The patient consent form was signed and witnessed. Standard patient time-out procedure was performed. The patient was placed in the prone position on the fluoroscopy table and automated blood pressure cuff and pulse oximeter applied. The skin entry point for entering/approaching the epidural space at L4-L5 and marked. Following thorough chlorhexadine preparation of the skin and draping and 1% lidocaine infiltration of the skin entry point and subcutaneous tissues, a 18 gauge Touhy needle was placed under fluoroscopic guidance and with loss of resistance technique into the epidural space. Needle tip placement and depth were aided and confirmed by fluoroscopy. There was no paresthesia or return of blood or CSF through the needle. 1 cc's of Omnipaque 240 was injected with clear epidural s pread confirmed with fluoroscopy. 80mg depomedrol was injected. There was not any unusual discomfort expressed by ALONDRA NESBITT. Patient's vital signs were stable throughout the procedure and were as recorded in nursing records. Follow up plans and appointments were discussed with patient. Post procedure instruction was given as documented in nursing records and having met discharge criteria and was discharged from the [facility]. COMMENTS: If this procedure is helpful, it can be completed up to 3 times per 12 months. Nagi Dooley DO, MPH Pain Management
== END 2020-06-24 12:00 ==
PROVIDERS: PCP Nurse Practitioner; Visit Provider Preventive Medicine Occupational Medicine
DX: M54.17 Radiculopathy, lumbosacral region (principal)
CPT/HCPCS: 62323; 72100; J1040; Q9967

== ENCOUNTER 2020-07-28 12:25 | Outpatient (CLI) | payer MEDICAID, SELFPAY ==
[2020-07-28 12:44] VITALS: BP 146/93; PULSE 74; RESP 18; TEMP 37.2; O2SAT 97
--- NOTE | 2020-07-28 13:15 | DI.RAD_ITS ---
EXAM: XR PAIN CLINIC LUMBAR SP 2V CLINICAL HISTORY: DX: Lumbar Radiculopathy. TECHNIQUE: Fluoroscopy was provided for the referring physician for guidance with performing injecti on procedure. COMPARISON: No exams were available for comparison FINDINGS: Please see procedure note for details. RADIATION DOSE DELIVERED: 16.7 seconds fluoro time. 5.35 mGy radiation dose.
--- NOTE | 2020-07-28 13:18 | PDOC.PAIN ---
Pain Clinic Procedure Note Procedure Note Procedure Note: Date of service: July 28, 2020 Lumbar Epidural Steroid Injection Procedure Note COMMENTS: Good, but partial, relief with his first lumbar epidural steroid injection 4 weeks ago. Dx: Lumbosacral radiculopathy ALONDRA NESBITT has been referred to the [facility] for lumbar epidural steroid injection. The patient was greeted by the nurse who verified patients name and . Patient was then taken to the fluoroscopy suite. The patient was interviewed and the medial record reviewed. There were no medical, pharmacologic, radiographic, or other structural contraindications to attempting fluoroscopically guided lumbar epidural steroid injection. Risks and expected side effects as well as potential benefits of the procedure were reviewed and voiced concerns expressed. The patient consent form was signed and witnessed. Standard patient time-out procedure was performed. The patient was placed in the prone position on the fluoroscopy table and automated blood pressure cuff and pulse oximeter applied. The skin entry point for entering/approaching the epidural space at the right side of L5-S1 and marked. Following thorough chlorhexadine preparation of the skin and draping and 1% lidocaine infiltration of the skin entry point and subcutaneous tissues, a 18 gauge Touhy needle was placed under fluoroscopic guidance and with loss of resistance technique into the epidural space. Needle tip placement and depth were aided and confirmed by fluoroscopy. There was no paresthesia or return of blood or CSF through the needle. 1 cc's of Omnipaque 240 was injected with clear epidural spread confirmed with fluoroscopy. 80mg depomedrol was injected. There was not any unusual discomfort expressed by ALONDRA NESBITT. Patient's vital signs were stable throughout the procedure and were as recorded in nursing records. Follow up plans and appointments were discussed with patient. Post procedure instruction was given as documented in nursing records and having met discharge criteria and was discharged from the [facility]. COMMENTS: If this procedure is helpful, it can be completed up to 3 times per 12 months. Nagi Dooley DO, MPH Pain Management
[2020-07-28] MEDS: Omnipaque 240 MG/ML 50 ML BTL IJ (13:22)
[2020-07-28 13:23] VITALS: BP 141/62; PULSE 66; RESP 14; O2SAT 98
[2020-07-28] MEDS: methylPREDNISolone ACETATE 80 MG/ML VIAL IJ (13:23)
== END 2020-07-28 12:26 | disposition home or self-care (01) ==
LOC: PC 12:25
PROVIDERS: PCP Nurse Practitioner; Visit Provider Preventive Medicine Occupational Medicine
DX: M54.17 Radiculopathy, lumbosacral region (principal)
CPT/HCPCS: 62323; 72100; J1040; Q9967

== ENCOUNTER 2020-12-23 11:31 | Emergency (ER) | payer MEDICAID, SELFPAY ==
[2020-12-23 11:34] VITALS: BP 160/92; PULSE 76; TEMP 36.3; O2SAT 99
[2020-12-23] MEDS: Lidocaine 5% Patch 2 PATCH TP (12:19)
[2020-12-23] MEDS: Ketorolac 60 MG/2 ML VIAL IM (12:19)
--- NOTE | 2020-12-23 13:10 | ED.GENADUL_ITS ---
Discharge Plan Disposition Patient Disposition: HOME Condition: Stable Discharge Details Clinical Impression: Back pain Primary Care Provider: Marita Gonzalez ED Provider: Sumeet Chung Home Meds and New Rx's Prescriptions: Continued fluoxetine 40 mg capsule 40 mg PO DAILY 30 Days Qty: 30 RF: 11 acetaminophen [Tylenol Extra Strength] 500 mg tablet 1,000 mg PO TID RF: 0 meloxicam 15 mg tablet 15 mg PO DAILY PRN (Reason: back pain) 30 Days Qty: 30 RF: 11 baclofen 20 mg tablet 20 mg PO BID 30 Days Qty: 60 RF: 11 pregabalin 150 mg capsule 150 mg PO BID 30 Days Qty: 60 RF: 5 prednisone 10 mg tablet 10 mg PO DIRECTED 14 Days Qty: 41 RF: 0 ibuprofen 800 mg Tablet 800 mg PO Q8H PRNRF: 0 Discharge Instructions Instructions: Back Pain (ED) Additional Instructions: Injection of Toradol into Lidoderm patches applied. Please continue taking your current medications as directed. I have placed you on our care management list to help expedite outpatient follow-up through the [facility] back or spine clinic as you have requested a second opinion. They should be contacting you in the next 24-48 hours. Please watch for new or worsening symptoms and return to the ER for any concerns Discharge Data Discharge Date/Time-TO BE ENTERED AT DEPARTURE: 12/23/20 13:24 Medical Decision Making 40-year-old gentleman, chronic back pain, seen by our pain clinic, presents to the ER today reporting his pain is ongoing, worsening, wanting a second opinion. He denies recent illness or trauma. Denies fever, history of IV drug use, paresthesias. Clinically this appears to musculoskeletal in nature. Neuro, vascular intact. Afebrile. Patient seems to have very realistic expectations today. He would like to see if we can help with his discomfort reporting she would like help getting a second opinion. He will be given 60 IM Toradol as well as two Lidoderm patches. I will place him on the care management list to help control referral to [facility] spine clinic. Patient is agreeable with this plan and is very thankful. Patient is able to slowly but steadily upon discharge. Standard discharge and return precautions given This documentation was generated using [employer] system, please disregard any oddities of phrase or misspellings. Medical Records Medical records reviewed: Yes I reviewed the patient's medical records. HPI General Mode of arrival: ambulatory . Date/Time Provider Initiated Documentation: 12/23/20 11:38 . Limitations to Documentation: no limitations . Information obtained by: patient . HPI Narrative: This is a 40-year-old gentleman, history of chronic low back pain, current smoker, hyperlipidemia, depression, presenting for acute on chronic back pain and requesting a second opinion. Patient states that he has been seen by our local pain clinic for a couple of years, has had injections, nerve ablations, etc. but feels as though he had a standstill of his treatment and not getting any better. He denies recent illness or trauma. He denies IV drug use, fever, chest pain, shortness of breath, abdominal pain, numbness, tingling, weakness, saddle paresthesias, bowel or bladder incontinence or retention. Patient states that he typically lives at a 6 or 7 out of 10 back pain but today he feels like his pain is 8 or 9. He states that he is taking all of his therapy as directed. He has tried to talk with his pain clinic about seeing a spinal specialist or getting a second opinion but feels as though the conversation did not go anywhere. Patient is very realistic with his expectations today, he understands that we will not be able to perform advanced imaging such as MRI, setting up with a specialist today, or alleviate all of his discomfort. Related Data Home Medications Medication Instructions Recorded Confirmed acetaminophen 500 mg tablet 1,000 mg PO TID tab 05/27/20 12/23/20 baclofen 20 mg tablet 20 mg PO BID 30 Days #60 tab 05/27/20 12/23/20 meloxicam 15 mg tablet 15 mg PO DAILY PRN 30 Days #30 tab 05/27/20 12/23/20 pregabalin 150 mg capsule 150 mg PO BID 30 Days #60 cap 07/28/20 12/23/20 fluoxetine 40 mg capsule 40 mg PO DAILY 30 Days #30 cap 09/22/20 12/23/20 prednisone 10 mg tablet 10 mg PO DIRECTED 14 Days #41 12/14/20 12/23/20 tab ibuprofen 800 mg PO Q8H PRN 12/23/20 12/23/20 Previous Rx's Medication Instructions Recorded baclofen 20 mg tablet 20 mg PO BID 30 Days #60 tab 05/27/20 meloxicam 15 mg tablet 15 mg PO DAILY PRN 30 Days #30 tab 05/27/20 pregabalin 150 mg capsule 150 mg PO BID 30 Days #60 cap 07/28/20 fluoxetine 40 mg capsule 40 mg PO DAILY 30 Days #30 cap 09/22/20 prednisone 10 mg tablet 10 mg PO DIRECTED 14 Days #41 12/14/20 tab Allergies Allergy/AdvReac Type Severity Reaction Status Date / Time No Known Allergies Allergy Unverified 12/23/20 11:39 General Stated Complaint: Nk/Back Pain HANNAH: 4 Review of Systems Constitutional Constitutional: Denies fever(s) and Denies weakness Cardiovascular Cardiovascular: Denies chest pain and Denies dyspnea Respiratory Respiratory: Denies dyspnea Gastrointestinal Gastrointestinal: Denies abdominal pain, Denies nausea and Denies vomiting Genitourinary Genitourinary: Denies urinary hesitancy and Denies urinary incontinence Musculoskeletal Musculoskeletal: Reports back pain, Denies numbness, Reports stiffness and Denies tingling Integumentary/Breasts Skin/Breast: Denies erythema Neurologic Neurologic: Denies numbness, Denies tingling and Denies weakness PFSH Medical History Acute appendicitis with generalized peritonitis Depression Hyperlipidemia Left lateral epicondylitis Pelvic pain in male (06/20/17) Suppurative tenosynovitis of flexor tendon of left hand Both arms now Tobacco use Surgical History Appendectomy (12/01/17) Colonoscopy - IV Sedation (02/24/17) Colonoscopy - MAC (04/11/17) H/O neck surgery Family History Father Essential hypertension Hyperlipidemia Heart disease Grandmother Colon cancer Social History Smoking/Tobacco Use Status: Current every day Tobacco Type: cigarettes Smokeless tobacco user: chewing tobacco Smoking risk assessment performed?: Yes Alcohol Intake: former Drug use: Occasionally Substance use type: marijuana Details: occasionally Household members: significant other and children Housing: house Number of Children: 4 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 What is your relationship status?: living with partner Panel score (0-1 are the most socially isolated patients): 1 What type of physical activity do you participate in: additional Details: active with work Do you feel safe at home: Yes Do you feel safe in your relationship?: Yes Exam Const General: cooperative, healthy appearing, comfortable and no acute distress Orientation: alert and awake [facility] Head: normal to inspection, normocephalic and atraumatic Eyes General: appearance normal, both eyes and all related structures Conjunctivae: conjunctivae normal Neck Neck: normal visual inspection, full ROM, trachea midline and supple Resp Effort & Inspection: normal respiratory effort and able to speak in complete sentences Auscultation: clear to auscultation bilaterally Cardio Rate: regular rate Rhythm: regular rhythm GI Palpation: soft and nontender Back/Spine/Pelvis Back: no CVA tenderness and back tenderness (Diffuse, mild lumbar. No midline point tenderness) Thoracic/Lumbar Spine: straight leg raise positive (10?) Pelvis: no pain with anterior-posterior compression and no pain with lateral compression Skin General skin exam: no rashes or lesions noted Neuro General: patient alert, patient awake, moves all extremities and no focal motor deficits Cognition: normal cognition Speech: speech normal Gait: antalgic Motor: muscle tone normal throughout and strength 5/5 throughout Sensory Exam: no sensory deficits noted Extrem General: normal to inspection, full ROM and capillary refill normal Psych Appearance: grossly normal Mental Status: mental status grossly normal Course Vital Signs Vital signs: Vital Signs Temperature 36.3 C L 12/23/20 11:34 Pulse 76 12/23/20 11:34 Blood Pressure 160/92 H 12/23/20 11:34 Pulse Oximetry 99 12/23/20 11:34 Temperature 36.3 C L 12/23/20 11:34 Temperature Source Temporal Artery Scan 12/23/20 11:34 Pulse 76 12/23/20 11:34 Respiratory Effort Non-Labored 12/23/20 11:38 Blood Pressure 160/92 H 12/23/20 11:34 Blood Pressure Position Sitting 12/23/20 11:34 Pulse Oximetry 99 12/23/20 11:34 Oxygen Delivery Method Room Air 12/23/20 11:34 Oxygen Flow Rate 0 12/23/20 11:34 Pain Level 8 12/23/20 11:34
--- NOTE | 2020-12-23 18:47 | NUR.NOTE ---
=referreal to [facility] for spine clinic
== END 2020-12-23 13:24 | disposition home or self-care (01) ==
PROVIDERS: Emergency Provider Physician Assistant; PCP Nurse Practitioner
DX: M54.5 Low back pain (principal); G89.29 Other chronic pain
CPT/HCPCS: 96372; 99284; 99283; J1885

== ENCOUNTER 2021-01-03 19:46 | Emergency (ER) | payer MEDICAID, SELFPAY ==
--- NOTE | 2021-01-03 19:45 | DI.RAD_ITS ---
Exam(s) XR FINGER RT MIDDLE EXAM: XR FINGER RT MIDDLE CLINICAL HISTORY: infection in distal tip, eval for osteo. TECHNIQUE: 2D digital imaging was performed. COMPARISON: No exams were available for comparison FINDINGS: There is a avulsion fracture of the tuft of the distal phalanx on its medial aspect. There is overly ing soft tissue avulsion. There is no radiopaque foreign body. IMPRESSION: DATA REPOSITORY: RADIATION DOSE DELIVERED:
[2021-01-03 19:51] VITALS: BP 147/64; PULSE 74; RESP 16; TEMP 37; O2SAT 100
[2021-01-03] MEDS: Lidocaine 4% Cream 5 GM TUBE TP (20:02)
--- NOTE | 2021-01-03 20:03 | ED.GENADUL_ITS ---
Discharge Plan Disposition Patient Disposition: HOME Condition: Good Discharge Details Clinical Impression: Paronychia Primary Care Provider: Marita Gonzalez ED Provider: Reuben Burnham Home Meds and New Rx's Prescriptions: Continued fluoxetine 40 mg capsule 40 mg PO DAILY 30 Days Qty: 30 RF: 11 acetaminophen [Tylenol Extra Strength] 500 mg tablet 1,000 mg PO TID RF: 0 meloxicam 15 mg tablet 15 mg PO DAILY PRN (Reason: back pain) 30 Days Qty: 30 RF: 11 baclofen 20 mg tablet 20 mg PO BID 30 Days Qty: 60 RF: 11 pregabalin 150 mg capsule 150 mg PO BID 30 Days Qty: 60 RF: 5 ibuprofen 800 mg Tablet 800 mg PO Q8H PRNRF: 0 Discharge Instructions Instructions: Sumi (ED) Additional Instructions: At this time you have an infection in your finger. It was drained with a needle. Please soak it 2-3 times a day and gently massage the area to get out any remaining pus. Please take the antibiotic Bactrim as directed. Please take 1000 mg of Tylenol every 6 hours and 800 mg of ibuprofen every 6 hours as needed for pain. These are the maximum doses. Continue to ice your finger. If you notice any worsening of your symptoms, or any new symptoms such as vo miting, diarrhea, fever, chills, shortness of breath, chest pain, numbness, weakness, or fainting , please return immediately to the emergency department for reevaluation. Please follow up with your primary care provider as soon as possible for reassessment and reevaluation. As always, it was a pleasure participating in your medical care today. Referrals: Marita Gonzalez NP [Primary Care Provider] - Jerzy Gaming MD [ [facility] STAFF PHYSICIAN] - Discharge Data Discharge Date/Time-TO BE ENTERED AT DEPARTURE: 01/03/21 21:00 Medical Decision Making 40-year-old male with a past medical history of crushing his right middle finger between 2 steel posts 3 months ago. He never went to have it evaluated at that time, and it was otherwise unremarkable and healing well on its own however starting yesterday he noticed swelling at the distal tip with associated pain. He is concerned for infection and came in today. He denies fever or chills. Pain is present when he moves the finger. Pain is located at the distal tip of the middle finger phalanges. Patient denies any drainage. Pain is noted is achy. No other complaints at this time. Physical exam demonstrates swelling in a mild amount of redness at the distal tip of the middle finger. Nail is notably deformed, however in spite of that the clinical evidence is highest for a paronychia and not a felon. Bedside ultrasound shows no evidence of fluid pocket in the pulp of the finger, but there is a small fluid pocket in the outer aspect by the nail edge. We will get an x-ray to rule out osteomyelitis as I am uncertain if he had a fracture in that area when he crushed his finger before 3 months ago. We will apply LMX, and then I&D. 9:04 PM The area was I indeed, a notable amount of purulent fluid was removed, likely 2 mL. Patient tolerated this very well. X-ray does show evidence of a small bony fragment actually on the opposite side of the current paronychia. Symptoms appear less consistent with osteomyelitis and more consistent with felon. I did review the case with Dr. Gaming, and at this time the concern is likely for treatment of the felon rather than evidence of osteomyelitis. We will treat with Bactrim, and continued soaks. Recommend close follow-up with PCP and orthopedics if indicated. Discussed red flags which to return. A dose of Bactrim was given here, and a prescription for home was also given. [facility] I have addressed all patient concerns at this time. The patient was made aware of what symptoms to monitor for that would warrant a return to the emergency department. Discussed the plan with the patient, they demonstrate verbal understanding and agreement with our assessment and plan at this time. The documentation in this chart was dictated using [employer] dictation software. Please excuse any dictation errors. FINDINGS: There is a avulsion fracture of the tuft of the distal phalanx on its medial aspect. There is overlying soft tissue avulsion. There is no radiopaque foreign body. HPI General Date/Time Provider Initiated Documentation: 01/03/21 19:48 . HPI Narrative: 40-year-old male with a past medical history of crushing his right middle finger between 2 steel posts 3 months ago. He never went to have it evaluated at that time, and it was otherwise unremarkable and healing well on its own however starting yesterday he noticed swelling at the distal tip with associated pain. He is concerned for infection and came in today. He denies fever or chills. Pain is present when he moves the finger. Pain is located at the distal tip of the middle finger phalanges. Patient denies any drainage. Pain is noted is achy. No other complaints at this time. Related Data Home Medications Medication Instructions Recorded Confirmed acetaminophen 500 mg tablet 1,000 mg PO TID tab 05/27/20 01/03/21 baclofen 20 mg tablet 20 mg PO BID 30 Days #60 tab 05/27/20 01/03/21 meloxicam 15 mg tablet 15 mg PO DAILY PRN 30 Days #30 tab 05/27/20 01/03/21 pregabalin 150 mg capsule 150 mg PO BID 30 Days #60 cap 07/28/20 01/03/21 fluoxetine 40 mg capsule 40 mg PO DAILY 30 Days #30 cap 09/22/20 01/03/21 ibuprofen 800 mg PO Q8H PRN 12/23/20 01/03/21 Previous Rx's Medication Instructions Recorded baclofen 20 mg tablet 20 mg PO BID 30 Days #60 tab 05/27/20 meloxicam 15 mg tablet 15 mg PO DAILY PRN 30 Days #30 tab 05/27/20 pregabalin 150 mg capsule 150 mg PO BID 30 Days #60 cap 07/28/20 fluoxetine 40 mg capsule 40 mg PO DAILY 30 Days #30 cap 09/22/20 Allergies Allergy/AdvReac Type Severity Reaction Status Date / Time No Known Allergies Allergy Unverified 01/03/21 19:56 General Stated Complaint: Orthopedic HANNAH: 4 Review of Systems All systems reviewed & are unremarkable except as noted in HPI and below PFSH Medical History Acute appendicitis with generalized peritonitis Depression Hyperlipidemia Left lateral epicondylitis Pelvic pain in male (06/20/17) Suppurative tenosynovitis of flexor tendon of left hand Both arms now Tobacco use Surgical History Appendectomy (12/01/17) Colonoscopy - IV Sedation (02/24/17) Colonoscopy - MAC (04/11/17) H/O neck surgery Family History Father Essential hypertension Hyperlipidemia Heart disease Grandmother Colon cancer Social History Smoking/Tobacco Use Status: Current every day Tobacco Type: cigarettes Smokeless tobacco user: chewing tobacco Smoking risk assessment performed?: Yes Alcohol Intake: former Drug use: Occasionally Substance use type: marijuana Details: occasionally Household members: significant other and children Housing: house Number of Children: 4 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 3.ENT: Atraumatic external nose and ears. Moist MM. Neck: Symmetric, trachea midline, No thyromegaly. 4.CVS: +S1/S2, No murmurs or gallops. Peripheral pulses 2+ and equal in all extremities. Brisk capillary refill in all extremities. 5.RESP: Unlabored respiratory effort. Clear to auscultation bilaterally. No wheezes rales or rhonchi 6.GI: Soft, Nontender/Nondistended, No hepatosplenomegaly. No guarding or rebound. 7.MSK: Patient's right hand middle finger distal tip demonstrates a typical nail secondary to old injury, swelling at the distal tip of the phalanges concerning for paronychia over felon. No drainage or discharge. Bedside ultrasound shows a small pocket of fluid at the superficial aspect. Minimal pain with flexion and extension. No sausage-shaped digit. Finger is not held in flexion. No significant passive pain with extension or flexion. 8.Skin: Warm, please see musculoskeletal 9.Neuro: attending pathologist II-XII grossly intact. Sensation grossly intact, no focal neurologic deficits. 10.Psych: (AAO) x3. Appropriate mood and affect Course Vital Signs Vital signs: Vital Signs Temperature 37.0 C 01/03/21 19:51 Pulse 74 01/03/21 19:51 Respiratory Rate 16 01/03/21 19:51 Blood Pressure 147/64 H 01/03/21 19:51 Pulse Oximetry 100 01/03/21 19:51 Temperature 37.0 C 01/03/21 19:51 Temperature Source Tympanic 01/03/21 19:51 Pulse 74 01/03/21 19:51 Respiratory Rate 16 01/03/21 19:51 Respiratory Effort Non-Labored 01/03/21 19:56 Blood Pressure 147/64 H 01/03/21 19:51 Pulse Oximetry 100 01/03/21 19:51 Pain Level 7 01/03/21 19:51 Procedures Abscess I/D Site: Hand (middle finger distal phalanx) Side (if applicable): Right Local Anesthetic: Other Anesthetic (4% LMX) Amount of anesthesia used (mL): 1 Technique: Needle Aspiration Amount of fluid expressed (mL): 2 Irrigation: No Packing used?: None Complications: Other (none)
[2021-01-03] MEDS: Sulfameth/Trimeth DS, 2 TABS/BTL 1 TAB PO (20:51)
[2021-01-03] MEDS: Ketorolac 30 MG/ML VIAL IM (20:52)
--- NOTE | 2021-01-03 21:21 | DI.VRAD_ITS ---
PROCEDURE INFORMATION: Exam: XR Right Finger(s) Exam date and time: 01/03/2021 8:00 PM Age: 40 years old Clinical indication: Swelling; Fingers; Right TECHNIQUE: Imaging protocol: XR Right fingers. Views: Minimum 2 views. COMPARISON: CR RIGHT ELBOW COMPLETE 07/08/2016 3:27 PM FINDINGS: Bones/joints: Small osseous fragment is is seen adjacent to the tuft compatible with mildly displaced fracture. No malalignment. This fracture may be open. Soft tissues: Soft tissue trauma noted. IMPRESSION: Small fracture from the distal tuft may be open based on soft tissue trauma Dictated and Authenticated by: José James MD. Ordering:JEFFERSON Aelxis MD
== END 2021-01-03 21:00 | disposition home or self-care (01) ==
PROVIDERS: Emergency Provider Student in an Organized Health Care Education/Training Program; PCP Nurse Practitioner
DX: L03.011 Cellulitis of right finger (principal); B95.61 Methicillin susceptible Staphylococcus aureus infection as the cause of diseases classified elsewhere
CPT/HCPCS: 10021; 87077; 96372; 99284; 73140; 87070; 87186; J1885

== ENCOUNTER 2021-05-30 12:16 | Emergency (ER) | payer MEDICAID, SELFPAY ==
[2021-05-30 12:20] VITALS: BP 161/97; PULSE 75; RESP 15; TEMP 36.6; O2SAT 98
--- NOTE | 2021-05-30 12:34 | ED.GENADUL_ITS ---
Discharge Plan Disposition Patient Disposition: HOME Condition: Stable Discharge Details Clinical Impression: Acute exacerbation of chronic low back pain Primary Care Provider: Marita Gonzalez ED Provider: Helene Dudley Home Meds and New Rx's Prescriptions: New prednisone 20 mg tablet See Rx Instructions .ROUTE .COMPLEX Qty: 18 RF: 0 methocarbamol 500 mg tablet 500 mg PO Q6H PRN (Reason: muscle spasm) Qty: 14 RF: 0 Continued fluoxetine 40 mg capsule 40 mg PO DAILY 30 Days Qty: 30 RF: 11 acetaminophen [Tylenol Extra Strength] 500 mg tablet 1,000 mg PO TID RF: 0 meloxicam 15 mg tablet 15 mg PO DAILY PRN (Reason: back pain) 30 Days Qty: 30 RF: 11 baclofen 20 mg tablet 20 mg PO BID 30 Days Qty: 60 RF: 11 pregabalin 150 mg capsule 150 mg PO BID 30 Days Qty: 60 RF: 5 ibuprofen 800 mg Tablet 800 mg PO Q8H PRNRF: 0 Discharge Instructions Instructions: Low Back Strain (ED) Additional Instructions: Alternate ice and heat to the affected area(s) several times daily for 20 minutes at a time. Alternate tylenol and motrin as needed and directed for pain. Do not take more than 4000 mg of Tylenol daily. Take 600 mg of ibuprofen or Motrin every 6 hours as needed for pain. Prescription for steroids and muscle relaxers have been sent electronically to your pharmacy. You have been placed on care management list to help arrange for follow-up appointment with your primary care doctor within the next 1 to 2 weeks. Follow-up with your [facility] pain clinic for reevaluation. Return to the emergency department with any worsening or new concerning symptoms such as fever, loss of bowel or bladder function, worsening leg weakness or inability to ambulate. Discharge Data Discharge Physician: Helene Dudley Medical Decision Making 40-year-old male with a history of chronic back pain presents with worsening left-sided lower back pain over the past few days. Denies any new injury. No new cauda equina symptoms other than a complaint of leg weakness which he states is intermittent and chronic. Blood pressure hypertensive, remainder vitals within normal limits. Patient appears slightly uncomfortable but nontoxic. He was able to ambulate around the room and has pain reproducible with range of motion at his lumbar spine but no significant limitation of range of motion. He has tenderness to palpation of his left lumbar region but no step-off, rash, cellulitis or trauma. He has normal muscle strength and pulses throughout b/l distal lower extremities without focal deficits. History and presentation does not appear consistent with epidural abscess, cauda equina syndrome, kidney stone. Discussed at length with patient that his current presentation may be consistent with an acute exacerbation of chronic back pain and/or lumbar strain which may respond to a short course of steroids and muscle relaxers. Discussed that as his pain is chronic, may not have complete relief of his pain but would recommend follow-up with the [facility] clinic for consideration for repeat steroid injection, physical therapy or additional imaging if indicated. Patient placed on care management/to help arrange for follow-up appointment with the primary care doctor within the next 2 weeks for re-evaluation of his back pain. Usual and customary return precautions given prior to discharge. Medical Records Medical records reviewed: Yes I reviewed the patient's medical records. HPI General Mode of arrival: ambulatory . Date/Time Provider Initiated Documentation: 05/30/21 12:32 . Limitations to Documentation: no limitations . Information obtained by: patient . HPI Narrative: Patient is a 40-year-old male with a history of chronic back pain presents with worsening of his chronic back pain over the last 5 days. Patient states he has had chronic back pain for several years secondary to degenerative disc disease and previous injury. He saw [facility] pain clinic in April and received a steroid injection without relief. He has also received an epidural ablation in the past which he states has made his overall back pain worse since then. He states he has occasional flareups of his pain but denies any recent injury prior to this episode. He states the pain is worse with walking, bending and standing. He takes up to 6000 mg of Tylenol daily per [facility] recommendations. He also takes ibuprofen without relief. He states the pain is located in his left lower back with occasional radiation down his left leg. He currently denies any pain in his legs but states that his legs feel weak . He denies any fever, nausea, vomiting, bowel or bladder incontinence, saddle anesthesia, leg tingling or numbness. He last took ibuprofen at 6 AM this morning. Related Data Home Medications Medication Instructions Recorded Confirmed acetaminophen 500 mg tablet 1,000 mg PO TID tab 05/27/20 05/30/21 baclofen 20 mg tablet 20 mg PO BID 30 Days #60 tab 05/27/20 05/21/21 meloxicam 15 mg tablet 15 mg PO DAILY PRN 30 Days #30 tab 05/27/20 05/21/21 pregabalin 150 mg capsule 150 mg PO BID 30 Days #60 cap 07/28/20 05/21/21 fluoxetine 40 mg capsule 40 mg PO DAILY 30 Days #30 cap 09/22/20 05/30/21 ibuprofen 800 mg PO Q8H PRN 12/23/20 05/30/21 methocarbamol 500 mg PO Q6H PRN #14 tab 05/30/21 prednisone See Rx Instructions .ROUTE 05/30/21 .COMPLEX #18 tab Previous Rx's Medication Instructions Recorded baclofen 20 mg tablet 20 mg PO BID 30 Days #60 tab 05/27/20 meloxicam 15 mg tablet 15 mg PO DAILY PRN 30 Days #30 tab 05/27/20 pregabalin 150 mg capsule 150 mg PO BID 30 Days #60 cap 07/28/20 fluoxetine 40 mg capsule 40 mg PO DAILY 30 Days #30 cap 09/22/20 methocarbamol 500 mg PO Q6H PRN #14 tab 05/30/21 prednisone See Rx Instructions .ROUTE 05/30/21 .COMPLEX #18 tab Allergies Allergy/AdvReac Type Severity Reaction Status Date / Time No Known Allergies Allergy Verified 05/30/21 12:28 General Stated Complaint: Nk/Back Pain HANNAH: 4 Review of Systems All systems reviewed & are unremarkable except as noted in HPI and below Constitutional Constitutional: Reports as per HPI, Denies chills and Denies fever(s) Eyes Eyes: Denies blurry vision ENT Ears, Nose, Mouth, and Throat: Denies dizziness, Denies sore throat and Denies throat swelling Cardiovascular Cardiovascular: Denies chest pain and Denies dyspnea Respiratory Respiratory: Denies cough and Denies dyspnea Gastrointestinal Gastrointestinal: Denies abdominal pain, Denies diarrhea and Denies vomiting Genitourinary Genitourinary: Denies hematuria and Denies dysuria Musculoskeletal Musculoskeletal: Denies back pain and Denies numbness Integumentary/Breasts Skin/Breast: Denies lesions and Denies rash Neurologic Neurologic: Denies dizziness, Denies localized weakness and Denies numbness Allergic/Immunologic Allergic/Immunologic: Denies throat swelling PFSH All Active Problems (Updated 05/30/21 @ 13:06 by Helene Dudley, DO) Back pain (Acute) Paronychia (Acute) Acute exacerbation of chronic low back pain (Acute) Smoker (Acute) Hyperlipidemia (Acute 10/21/13) Disorder characterized by back pain (Acute) Depressive disorder (Acute 10/22/12) Colon adenoma (Acute 02/24/17) sessile serrated. needs colonoscopy every 3 years (next 2019) Bilateral elbow joint pain (Acute 07/21/16) Medical History Acute appendicitis with generalized peritonitis Depression Hyperlipidemia Left lateral epicondylitis Pelvic pain in male (06/20/17) Suppurative tenosynovitis of flexor tendon of left hand Both arms now Tobacco use Surgical History Appendectomy (12/01/17) Colonoscopy - IV Sedation (02/24/17) Colonoscopy - MAC (04/11/17) H/O neck surgery Family History Father Essential hypertension Hyperlipidemia Heart disease Grandmother Colon cancer Social History Smoking/Tobacco Use Status: Current every day Tobacco Type: cigarettes Smokeless tobacco user: chewing tobacco Smoking risk assessment performed?: Yes Alcohol Intake: former Drug use: Occasionally Substance use type: marijuana Details: occasionally Household members: significant other and children Housing: house Number of Children: 4 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 What is your relationship status?: living with partner Panel score (0-1 are the most socially isolated patients): 1 What type of physical activity do you participate in: additional Details: active with work Do you feel safe at home: Yes Do you feel safe in your relationship?: Yes Exam Const General: cooperative, healthy appearing and no acute distress HENMT Head: normal to inspection Face and sinus: normal facial exam Eyes General: appearance normal, both eyes and all related structures Pupils: PERRL EOM: EOM intact bilaterally Neck Neck: normal visual inspection and No submandibular swelling Lymphatic: no lymphadenopathy noted Chest Chest: normal inspection of the chest and no tenderness Resp Effort & Inspection: normal respiratory effort and able to speak in complete sentences Auscultation: clear to auscultation bilaterally Cardio Rate: regular rate Rhythm: regular rhythm GI Inspection: normal to inspection Palpation: soft, not firm, not rigid and nontender Auscultation: normal bowel sounds Back/Spine/Pelvis Other: Pain is reproducible but he has fairly good range of motion of back including flexion, extension, rotation and side bending at the lumbar region. Back/spine/pelvis image: 1. Tenderness to palpation to the left lumbar paraspinal region. There is no overlying erythema, edema, ecchymosis, step-off. Skin General skin exam: no rashes or lesions noted Neuro General: patient alert, patient awake and patient oriented x3 Cognition: normal cognition Speech: speech normal Motor: muscle tone normal throughout and strength 5/5 throughout Sensory Exam: no sensory deficits noted DTR's: Rt Patellar: 1+, Lt Patellar: 1+, Rt Ankle: 1+ and Lt Ankle: 1+ Plantar Reflexes: Equivocal: bilateral (Negative babinski b/l ) Other: B/L DP/PT pulses intact. Extrem General: normal to inspection, full ROM, capillary refill normal, no calf tenderness bilaterally and no edema Psych Appearance: grossly normal Mental Status: mental status grossly normal Speech and Movement: speech and movement normal Affect: normal affect Course Vital Signs Vital signs: Vital Signs Temperature 97.9 F 05/30/21 12:20 Pulse 75 05/30/21 12:20 Respiratory Rate 15 05/30/21 12:20 Blood Pressure 161/97 H 05/30/21 12:20 Pulse Oximetry 98 05/30/21 12:20 Temperature 97.9 F 05/30/21 12:20 Temperature Source Temporal Artery Scan 05/30/21 12:20 Pulse 75 05/30/21 12:20 Respiratory Rate 15 05/30/21 12:20 Respiratory Effort Non-Labored 05/30/21 12:26 Blood Pressure 161/97 H 05/30/21 12:20 Blood Pressure Position Sitting 05/30/21 12:20 Pulse Oximetry 98 05/30/21 12:20 Oxygen Delivery Method Room Air 05/30/21 12:20 Oxygen Flow Rate 0 05/30/21 12:20 Pain Level 9 05/30/21 12:20
--- NOTE | 2021-05-30 13:07 | NUR.NOTE ---
Nursing Note: PT INFO GIVEN TO CARE MANAGMENT TO ESTABLISH REFERRAL TO BEEN SEEN BY PTN PCP FOR BACK PAIN. TO BE SEEN WITHIN TWO WEEKS. [facility]
[2021-05-30] MEDS: Ketorolac 60 MG/2 ML VIAL IM (13:09)
[2021-05-30] MEDS: diazePAM 5 MG TAB PO (13:09)
[2021-05-30] MEDS: predniSONE 20 MG TAB 60 MG PO (13:10)
== END 2021-05-30 13:21 | disposition home or self-care (01) ==
PROVIDERS: Emergency Provider Physician Assistant; PCP Nurse Practitioner
DX: M54.50 Low back pain, unspecified (principal); G89.29 Other chronic pain; R03.0 Elevated blood-pressure reading, without diagnosis of hypertension
CPT/HCPCS: 96372; 99284; 99283; J1885; J7512

== ENCOUNTER 2021-05-31 17:19 | Emergency (ER) | payer MEDICAID, SELFPAY ==
--- NOTE | 2021-05-31 17:21 | W.ED.GENAD ---
Discharge Plan Disposition Patient Disposition: HOME Condition: Improving Discharge Details Clinical Impression: Acute exacerbation of chronic low back pain Primary Care Provider: Marita Gonzalez ED Provider: Helene Dudley Home Meds and New Rx's Prescriptions: Continued fluoxetine 40 mg capsule 40 mg PO DAILY 30 Days Qty: 30 RF: 11 acetaminophen [Tylenol Extra Strength] 500 mg tablet 1,000 mg PO TID RF: 0 ibuprofen 800 mg Tablet 800 mg PO Q8H PRNRF: 0 prednisone 20 mg tablet See Rx Instructions .ROUTE .COMPLEX Qty: 18 RF: 0 methocarbamol 500 mg tablet 500 mg PO Q6H PRN (Reason: muscle spasm) Qty: 14 RF: 0 No Action omeprazole 20 mg capsule,delayed release(DR/EC) 20 mg PO DAILY Qty: 30 RF: 0 Discharge Instructions Instructions: Low Back Strain (ED), Chronic Back Pain (DC) Additional Instructions: Apply ice to the affected area several times daily for 20 minutes at a time. Continue your steroids until finished. Continue the muscle relaxer as needed and directed for pain. Take the oxycodone for pain not relieved with Tylenol, ibuprofen or your muscle relaxer. Follow-up with your scheduled appointment with your primary care doctor tomorrow. Return immediately to the emergency department if you develop any worsening or new concerning symptoms such as fever, worsening pain, leg weakness or any other concerns. Discharge Data Discharge Date/Time-TO BE ENTERED AT DEPARTURE: 05/31/21 19:54 Discharge Physician: Helene Dudley Medical Decision Making 40-year-old male with a history of chronic back pain for the past 3 years presents with persistent back pain without relief after seen in the ED yesterday. He has been taking his steroids and muscle relaxers as directed without relief. Patient had reported leg weakness but upon further questioning, stated it was mainly a factor of pain and he can ambulate without difficulty or weakness. He does admit to leg paresthesias but no other cauda equina symptoms. He was able to ambulate without focal deficits and is neurovascularly intact. There is no evidence of cellulitis, step-off, trauma or rash to his back. Discussed with patient that we do not treat chronic pain with narcotics in the ED but he endorses that his pain is worse over the last 5 days without known injury. Due to his report of leg paresthesias, will obtain CT imaging to rule out any acute process. We will give a dose of oxycodone, Valium and IM Toradol here for pain relief. CT lumbar spine notes degenerative changes with moderate disc bulges at L4-5 and L5-S1 but is essentially stable compared to lumbar spine MRI of May 2020. Patient reassessed and his pain is improved. Patient has a follow-up appointment with [facility] tomorrow for his back pain. We will send with 2 tabs of oxycodone to go but he is otherwise advised to take his steroids until finished and continue his muscle relaxers, Tylenol and ibuprofen as directed. Usual and customary return precautions given prior to discharge. Medical Records Medical records reviewed: Yes I reviewed the patient's medical records. Imaging Data Radiologic Study: Radiologist's impression: CT LUMBAR SPINE WO CLINICAL HISTORY: Left low back pain, intermittent b/l leg numbness TECHNIQUE: MR MR LUMBAR SPINE WO from 06/04/2020 MR MR LUMBAR SPINE WO from 06/04/2020 FINDINGS: CT examination of the lumbosacral spine was performed without contrast administration. There are mild hypertrophic degenerative changes of facet joints and endplates throughout the lumbar region. There moderate disc bulges at L 4 5 and L5-S1. No definite disc herniation seen by CT criteria. Mild endplate deformities from L3 through S1, developmental versus old endplate compressions. No gross central canal spinal stenosis neural foraminal stenosis identified. Appearance is grossly stable in comparison with prior lumbar spine MRI of June 04, 2020. IMPRESSION: No evidence of acute process. HPI General Mode of arrival: ambulatory. Date/Time Provider Initiated Documentation: 05/31/21 17:20. Limitations to Documentation: no limitations. Information obtained by: patient. HPI Narrative: Patient is a 40-year-old male with a history of chronic back pain seen here yesterday for an acute exacerbation of his chronic back pain presents today for continued pain without relief from medication. Patient was seen in the ED yesterday for left-sided lower back pain for the past 5 days which she has from time to time associated with his chronic back pain but worse over the past 5 days. He states he took the steroids, muscle relaxer and Tylenol today without significant relief. Patient states he is frustrated with his chronic back pain over the past 3 years and would like answers and relief. He denies any new injury, fever, nausea, vomiting, abdominal pain, bowel or bladder incontinence or saddle anesthesia. He states he does feel like he has leg weakness but mainly in the form of pain. He states he is able to walk but stopped walking due to his leg pain. He does admit to occasional tingling in both of his legs but is able to ambulate without paralysis. Related Data Home Medications Medication Instructions Recorded Confirmed acetaminophen 500 mg tablet 1,000 mg PO TID tab 05/27/20 06/01/21 fluoxetine 40 mg capsule 40 mg PO DAILY 30 Days #30 cap 09/22/20 06/01/21 ibuprofen 800 mg PO Q8H PRN 12/23/20 06/01/21 methocarbamol 500 mg PO Q6H PRN #14 tab 05/30/21 06/01/21 prednisone See Rx Instructions .ROUTE 05/30/21 06/01/21 .COMPLEX #18 tab omeprazole 20 mg capsule,delayed 20 mg PO DAILY #30 cap 06/01/21 06/01/21 release Previous Rx's Medication Instructions Recorded fluoxetine 40 mg capsule 40 mg PO DAILY 30 Days #30 cap 09/22/20 methocarbamol 500 mg PO Q6H PRN #14 tab 05/30/21 prednisone See Rx Instructions .ROUTE 05/30/21 .COMPLEX #18 tab omeprazole 20 mg capsule,delayed 20 mg PO DAILY #30 cap 06/01/21 release Allergies Allergy/AdvReac Type Severity Reaction Status Date / Time No Known Allergies Allergy Verified 06/01/21 15:43 General HANNAH: 4 Review of Systems All systems reviewed & are unremarkable except as noted in HPI and below Constitutional Constitutional: Reports as per HPI, Denies chills and Denies fever(s) Eyes Eyes: Denies blurry vision ENT Ears, Nose, Mouth, and Throat: Denies dizziness, Denies sore throat and Denies throat swelling Cardiovascular Cardiovascular: Denies chest pain and Denies dyspnea Respiratory Respiratory: Denies cough and Denies dyspnea Gastrointestinal Gastrointestinal: Denies abdominal pain, Denies diarrhea and Denies vomiting Genitourinary Genitourinary: Denies hematuria and Denies dysuria Musculoskeletal Musculoskeletal: Reports back pain and Denies numbness Integumentary/Breasts Skin/Breast: Denies lesions and Denies rash Neurologic Neurologic: Denies dizziness, Denies localized weakness and Denies numbness Allergic/Immunologic Allergic/Immunologic: Denies throat swelling PFSH All Active Problems (Updated 12/28/21 @ 16:01 by Marita Gonzalez NP) Spinal stenosis (Acute) Back pain (Acute) Paronychia (Acute) Acute exacerbation of chronic low back pain (Acute) Smoker (Acute) Hyperlipidemia (Acute 10/21/13) Disorder characterized by back pain (Acute) Depressive disorder (Acute 10/22/12) Colon adenoma (Acute 02/24/17) sessile serrated. needs colonoscopy every 3 years (next 2019) Bilateral elbow joint pain (Acute 07/21/16) Medical History Acute appendicitis with generalized peritonitis Depression Hyperlipidemia Left lateral epicondylitis Pelvic pain in male (06/20/17) Suppurative tenosynovitis of flexor tendon of left hand Both arms now Tobacco use Surgical History Appendectomy (12/01/17) Colonoscopy - IV Sedation (02/24/17) Colonoscopy - MAC (04/11/17) H/O neck surgery Family History Father Essential hypertension Hyperlipidemia Heart disease Grandmother Colon cancer Social History Smoking/Tobacco Use Status: Current every day Tobacco Type: cigarettes Smokeless tobacco user: chewing tobacco Smoking risk assessment performed?: Yes Alcohol Intake: former Drug use: Occasionally Substance use type: marijuana Details: occasionally Household members: significant other and children Housing: house Number of Children: 4 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 What is your relationship status?: living with partner Panel score (0-1 are the most socially isolated patients): 1 What type of physical activity do you participate in: additional Details: active with work Do you feel safe at home: Yes Do you feel safe in your relationship?: Yes Exam Const General: cooperative and no acute distress HENMT Head: normal to inspection Face and sinus: normal facial exam Eyes General: appearance normal, both eyes and all related structures EOM: EOM intact bilaterally Neck Neck: normal visual inspection and No submandibular swelling Lymphatic: no lymphadenopathy noted Chest Chest: normal inspection of the chest and no tenderness Resp Effort & Inspection: normal respiratory effort and able to speak in complete sentences Auscultation: clear to auscultation bilaterally Cardio Rate: regular rate Rhythm: regular rhythm GI Inspection: normal to inspection Palpation: soft, not firm, not rigid and nontender Auscultation: normal bowel sounds Male General Exam: Yes normal external exam Back/Spine/Pelvis Thoracic/Lumbar Spine: thoracic and lumbar spine normal to inspection, No paraspinal tenderness, No thoracic spinal tenderness and No lumbar spinal tenderness Pelvis: no pain with anterior-posterior compression Skin General skin exam: no rashes or lesions noted Neuro General: patient alert, patient awake and patient oriented x3 Cognition: normal cognition Speech: speech normal Motor: muscle tone normal throughout and strength 5/5 throughout Sensory Exam: no sensory deficits noted DTR's: Rt Patellar: 1+, Lt Patellar: 1+, Rt Ankle: 1+ and Lt Ankle: 1+ Plantar Reflexes: Equivocal: bilateral (negative babinski b/l ) Extrem General: normal to inspection, full ROM, capillary refill normal, no calf tenderness bilaterally and no edema Other: B/L DP/PT pulses intact. Psych Appearance: grossly normal Mental Status: mental status grossly normal Speech and Movement: speech and movement normal Affect: normal affect
[2021-05-31 17:27] VITALS: BP 169/70; PULSE 75; RESP 12; TEMP 37.2; O2SAT 98
--- NOTE | 2021-05-31 18:00 | DI.CT_ITS ---
Exam(s) CT LUMBAR SPINE WO EXAM: CT LUMBAR SPINE WO CLINICAL HISTORY: Left low back pain, intermittent b/l leg numbness TECHNIQUE: MR MR LUMBAR SPINE WO from 06/04/2020 MR MR LUMBAR SPINE WO from 06/04/2020 FINDINGS: CT examination of the lumbosacral spine was performed without contrast administration. There are mil d hypertrophic degenerative changes of facet joints and endplates throughout the lumbar region. Ther e moderate disc bulges at L 4 5 and L5-S1. No definite disc herniation seen by CT criteria. Mild en dplate deformities from L3 through S1, developmental versus old endplate compressions. No gross central canal spinal stenosis neural foraminal stenosis identified. Appearance is grossly stable in comparison with prior lumbar spine MRI of June 04, 2020. IMPRESSION: No evidence of acute process. RADIATION DOSE DELIVERED: 392.86mGy.cm Total DLP 15.61mGy CTDIvol RADIATION OPTIMIZATION: All CT scans at this facility use at least one of these dose optimization te chniques: automated exposure control; mA and/or kV adjustment per patient size (includes targeted exa ms where dose is matched to clinical indication); or iterative reconstruction.
[2021-05-31] MEDS: diazePAM 5 MG TAB PO (18:17)
[2021-05-31] MEDS: Ketorolac 60 MG/2 ML VIAL IM (18:18)
[2021-05-31] MEDS: oxyCODONE 10 MG TAB PO (18:18)
--- NOTE | 2021-05-31 18:47 | DI.VRAD_ITS ---
PROCEDURE INFORMATION: Exam: CT Lumbar Spine Without Contrast Exam date and time: 05/31/2021 6:10 PM Age: 40 years old Clinical indication: Lumbago with sciatica; Bilateral; Patient HX: Left low back pain, intermittent b/l leg numbness TECHNIQUE: Imaging protocol: Computed tomography images of the lumbar spine without contrast. Radiation optimization: All CT scans at this facility use at least one of these dose optimization techniques: automated exposure control; mA and/or kV adjustment per patient size (includes targeted exams where dose is matched to clinical indication); or iterative reconstruction. COMPARISON: MR LUMBAR SPINE WO 06/04/2020 10:18 AM FINDINGS: Vertebrae: No evidence of acute fracture or subluxation of the lumbar spine. No aggressive osseous lesion is identified. Stable inferior endplate concavity at L3, as well as biconcave deformities at L4 and L5, which may be related to chronic Schmorl's nodes or chronic insufficiency. Discs/Spinal canal/Neural foramina: To the extent evaluated, discogenic disease at L3-L4, L4-L5, and L5-S1 is not significantly changed from the prior examination. There remains narrowing of the subarticular recesses at L4-L5 which is probably not significantly changed Vasculature: Atherosclerosis of the abdominal aorta is incompletely evaluated. Soft tissues: Unremarkable. IMPRESSION: 1. Essentially stable discogenic disease at L3-L4 through L5-S1, with narrowing of the subarticular recesses at L4-L5. 2. Atherosclerosis, greater than expected for a patient of this age. Correlate for underlying vascular risk factors. Dictated and Authenticated by: Antoine Boggs MD. Ordering:MIL Narayan MD
[2021-05-31] MEDS: oxyCODONE 5 MG TAB 10 MG PO (19:53)
== END 2021-05-31 19:54 | disposition home or self-care (01) ==
PROVIDERS: Emergency Provider Physician Assistant; PCP Nurse Practitioner
DX: M54.50 Low back pain, unspecified (principal); G89.29 Other chronic pain; R20.2 Paresthesia of skin; M51.26 Other intervertebral disc displacement, lumbar region
CPT/HCPCS: 96372; 99284; 72131; 99283; J1885

== ENCOUNTER 2021-06-07 01:01 | Outpatient (CLI) | payer MEDICAID, SELFPAY ==
--- NOTE | 2021-06-07 07:00 | DI.MRI_ITS ---
Exam(s) MR LUMBAR SPINE WO EXAM: MR LUMBAR SPINE WO CLINICAL HISTORY: spinal stenosis, back pain,m48.00,m54.50. TECHNIQUE: Multiplanar multisequence MRI of the Lumbar spine was performed. COMPARISON: MR MR LUMBAR SPINE WO from 06/04/2020 FINDINGS: Bones: The last intervertebral disc space is designated the L5/S1 level for the numbering purpose of this examination. The vertebral body heights are well maintained. Alignment is satisfactory. The si gnal characteristics are unremarkable. Cord: The conus tip ends at the T12 level. It is of normal size and signal intensity. T12-L1: No disc herniations or bulges are present. L1-2: No disc herniations or bulges are present. L2-3: No disc herniations or bulges are present. L3-4: Partial disc desiccation. Mild disc bulging. Mild bilateral neural foraminal narrowing and c entral canal stenosis. L4-5: Normal disc height. Disc desiccation . Stable central disc protrusion. Stable bilateral ne ural foraminal narrowing right greater than left. And mild central canal stenosis. L5-S1: Stable annular tear left paracentral. Mild facet degenerative changes. Stable neural forami nal narrowing right greater than left. Soft tissues: The visualized SI joints and sacrum are well maintained. The paraspinal soft tissues ar e unremarkable. IMPRESSION: Stable appearance of L4-5 disc protrusion and L5-S1 annular tear. Stable mild central canal stenosis at L3-4 and L4-5. Stable neural foraminal narrowing. DATA REPOSITORY:
== END 2021-06-07 01:21 ==
PROVIDERS: PCP Nurse Practitioner; Visit Provider Nurse Practitioner
DX: M54.59 Other low back pain (principal); M48.061 Spinal stenosis, lumbar region without neurogenic claudication; M47.896 Other spondylosis, lumbar region; M51.26 Other intervertebral disc displacement, lumbar region; M51.36 Other intervertebral disc degeneration, lumbar region; G89.29 Other chronic pain
CPT/HCPCS: 72148

== ENCOUNTER → 2022-02-28 01:58 | Outpatient (CLI) | payer MEDICAID, SELFPAY ==
--- NOTE | 2022-02-28 07:15 | DI.MRI_ITS ---
Exam(s) MR LUMBAR SPINE WO EXAM: MR LUMBAR SPINE WO CLINICAL HISTORY: worsening leg weaknees; known lumbar disc disease,spinal stenosis, m48.00. TECHNIQUE: Multiplanar multisequence MRI of the Lumbar spine was performed. COMPARISON: MR MR LUMBAR SPINE WO from 06/07/2021 FINDINGS: Bones: The last intervertebral disc space is designated the L5/S1 level for the numbering purpose of this examination. The vertebral body heights are well maintained. Alignment is satisfactory. The ma rrow signal characteristics are unremarkable. Cord: The conus tip ends at the T12 level. It is of normal size and signal intensity. T12-L1: No disc herniations or bulges are present. No central spinal canal or neural foraminal stenos is. L1-2: No disc herniations or bulges are present. No central spinal canal or neural foraminal stenosis . L2-3: No disc herniations or bulges are present. No central spinal canal or neural foraminal stenosis . L3-4: Stable partial disc desiccation and mild posterior disc bulging. Stable bilateral neural miesha inal narrowing. Stable mild central canal stenosis. L4-5: Stable mild disc bulging and partial disc desiccation. Stable small central disc protrusion. Stable bilateral neural foraminal narrowing and mild central canal stenosis... L5-S1: Disc desiccation mild disc bulging. Stable annular tear left paracentral. Stable mild bilate ral neural foraminal narrowing. The visualized SI joints and sacrum are well maintained. Soft tissues: The paraspinal soft tissues are unremarkable. IMPRESSION: Stable appearance of degenerative disc changes from L3-4 through L5-S1 causing mild bilateral neural foraminal narrowing and mild central canal stenosis at L3-4 and L4-5.. No evidence of a new disc her niation. DATA REPOSITORY:
== END ==
PROVIDERS: PCP Nurse Practitioner; Visit Provider Family Medicine
DX: M48.061 Spinal stenosis, lumbar region without neurogenic claudication (principal); M47.816 Spondylosis without myelopathy or radiculopathy, lumbar region; M47.817 Spondylosis without myelopathy or radiculopathy, lumbosacral region
CPT/HCPCS: 72148

== ENCOUNTER 2022-10-20 14:20 | Outpatient (CLI) | payer MEDICAID, SELFPAY ==
--- NOTE | 2022-10-20 14:15 | RT.EKG_ITS ---
APPROVED REPORT Exam: Resting ECG Reason for Exam: preop Patient Location: O HR:69 bpm ECG Measurements Heart Rate 69 AXIS GA 165 P 83 QRSd 86 QRS 79 QT 379 T 56 QTc 406 Conclusion Sinus rhythm...normal P axis, V-rate 50- 99 Normal Electrocardiogram
[2022-10-20 21:25] LABS: COMMENT (LAB VIEW ONLY) 125.24 mg/dL; Microalb ug/mg Crea 247.2 ug/mg Cr
== END 2022-10-20 14:21 | disposition home or self-care (01) ==
LOC: DI.CM 14:21
PROVIDERS: PCP Nurse Practitioner Family; Visit Provider Nurse Practitioner Family
DX: Z01.818 Encounter for other preprocedural examination (principal)
CPT/HCPCS: 93010; 82043; 82570

== ENCOUNTER 2022-10-26 05:25 | Outpatient (CLI) | payer MEDICAID, SELFPAY ==
[2022-10-26 12:21] LABS: HCT 44.6 % (40.0-50.0); HGB 14.9 g/dL (13.5-17.5); MCH 31.7 pg (27.0-33.0); MCHC 33.4 % (32.0-36.0); MCV 95 fL (80-95); MPV 10.6 fL (8.0-11.0); Platelet Count 305 10^3/uL (130-400); RDW 13.5 % (11.8-14.1); RDW-SD 47.8 fL; WBC 11.49 10^3/uL (4.4-10.8)
[2022-10-26 12:34] LABS: INR 0.9 (0.9-1.1); PTT Activated 27.1 sec (21.5-31.9); Prothrombin Time 9.3 sec (9.3-11.0)
[2022-10-26 13:00] LABS: ALT 25 U/L (16-63); AST 19 U/L (15-37); Albumin 4.1 g/dL (3.4-5.0); Alkaline Phosphatase 68 U/L (46-116); Anion Gap 8.6 mmol/L (3-11); BUN 11 mg/dL (7-18); Bilirubin, Total 0.3 mg/dL (0.2-1.0); CO2 26.4 mmol/L (21.0-32.0); CREATININE 0.7 mg/dL (0.70-1.30); Chloride 105 mmol/L (98-107); Estimated GFR 117.25 (mL/min/1.73m2); Glucose 89 mg/dL (74-106); Potassium 4.2 mmol/L (3.5-5.1); Sodium 140 mmol/L (136-145); Total Protein 7.9 g/dL (6.4-8.2)
== END 2022-10-26 05:26 | disposition home or self-care (01) ==
LOC: LOS 05:25
PROVIDERS: PCP Nurse Practitioner Family; Visit Provider Family Medicine
DX: Z01.812 Encounter for preprocedural laboratory examination (principal)
CPT/HCPCS: 36415; 80053; 85027; 85610; 85730

== ENCOUNTER 2023-07-07 15:32 | Outpatient (REF) | payer MEDICAID, SELFPAY | END 2023-07-07 15:33 | disposition home or self-care (01) | LOC: LBN 15:32 | PROVIDERS: PCP Nurse Practitioner Family; Visit Provider Nurse Practitioner Family | DX: L03.113 Cellulitis of right upper limb; S59.811A Other specified injuries right forearm, initial encounter | CPT/HCPCS: 87077; 87070; 87186; 87205 ==

== ENCOUNTER 2023-07-08 08:28 | Inpatient (IN) | payer MEDICAID, SELFPAY ==
[2023-07-08 08:33] VITALS: BP 132/87; PULSE 70; RESP 17; TEMP 36.2; O2SAT 97
[2023-07-08 08:40] VITALS: BP 132/87; PULSE 70; RESP 17; TEMP 36.2; O2SAT 97
[2023-07-08 08:58] LABS: Abs Immature Grans 0.03 10^3/uL (0.0-0.06); Absolute Basophil Count 0.05 10^3/uL (0.0-0.2); Absolute Monocyte Count 1.29 10^3/uL (0.1-0.8); Basophils % 0.4; HCT 42.2 % (40.0-50.0); HGB 14.4 g/dL (13.5-17.5); Immature Grans % 0.3; Lactate 1.4 mmol/L (0.6-1.4); Lymphocytes % 22.1; MCH 31.4 pg (27.0-33.0); MCHC 34.1 % (32.0-36.0); MCV 92 fL (80-95); MPV 10.2 fL (8.0-11.0); Monocytes % 10.9; Neutrophils % 63.3; Platelet Count 261 10^3/uL (130-400); RBC 4.59 10^6/uL (4.36-5.78); RDW 13.7 % (11.8-14.1); RDW-SD 46.2 fL; WBC 11.83 10^3/uL (4.4-10.8)
[2023-07-08 09:00] LABS: Absolute Eosinophil Count 0.35 10^3/uL (0.0-0.7); Absolute Lymphocyte Count 2.61 10^3/uL (1.2-3.4); Absolute Neutrophil Count 7.49 10^3/uL (1.2-6.7)
[2023-07-08 09:02] LABS: ESR 46 mm/hr (0-15)
--- NOTE | 2023-07-08 09:02 | ED.GENADUL_ITS ---
HPI General Date/Time Provider Initiated Documentation: 07/08/23 08:39 . Limitations to Documentation: no limitations . Information obtained by: patient . HPI Narrative: 43-year-old gentleman with out significant past medical history presents for evaluation of right forearm wound. Reports that he had a lesion that they noted 2 days ago. He reports that it was the size of a pinhead initially. He does not recall any specific wounds or bites of any kind. He reports that it then progressed to a large ulceration with surrounding redness. He was evaluated by urgent care yesterday and started on antibiotic (doxycycline) he reports that the area was marked, he reports that since that time, the redness has progressed. He also now has redness streaking up his arm and he has a large lump under his armpit that is very painful to touch. He reports subjective fevers. But has not measured a temperature. Related Data Home Medications Medication Instructions Recorded Confirmed acetaminophen 500 mg tablet 1,000 mg PO TID 05/27/20 07/08/23 (Tylenol Extra Strength) fluoxetine 20 mg capsule 60 mg (3 x 20 mg) PO DAILY 90 days 09/27/22 07/08/23 #240 caps baclofen 20 mg tablet 20 mg PO BID for muscle spasm 30 03/13/23 07/08/23 days #60 tabs gabapentin 600 mg tablet See Rx Instructions .Route 03/13/23 07/08/23 .COMPLEX #180 tabs ibuprofen 800 mg tablet 800 mg PO Q8H PRN fever or pain 05/11/23 07/08/23 #60 tabs omeprazole 20 mg capsule,delayed See Rx Instructions .Route 06/08/23 07/08/23 release .COMPLEX #90 caps doxycycline hyclate 100 mg capsule 100 mg PO BID #14 caps 07/07/23 07/08/23 mupirocin 2 % topical ointment 1 applic topical BID #15 grams 07/07/23 07/08/23 Previous Rx's Medication Instructions Recorded fluoxetine 20 mg capsule 60 mg (3 x 20 mg) PO DAILY 90 days 09/27/22 #240 caps baclofen 20 mg tablet 20 mg PO BID for muscle spasm 30 03/13/23 days #60 tabs gabapentin 600 mg tablet See Rx Instructions .Route 03/13/23 .COMPLEX #180 tabs ibuprofen 800 mg tablet 800 mg PO Q8H PRN fever or pain 05/11/23 #60 tabs omeprazole 20 mg capsule,delayed See Rx Instructions .Route 06/08/23 release .COMPLEX #90 caps doxycycline hyclate 100 mg capsule 100 mg PO BID #14 caps 07/07/23 mupirocin 2 % topical ointment 1 applic topical BID #15 grams 07/07/23 Allergies Allergy/AdvReac Type Severity Reaction Status Date / Time No Known Allergies Allergy Verified 07/08/23 08:40 General Stated Complaint: Cellulitis HANNAH: 3 Exam Narrative Exam Narrative: Review of Systems: All systems reviewed & are unremarkable except as noted in HPI and below Well-developed, no acute distress NCAT PERRL, normal conjunctiva RRR Unlabored respiratory effort Nondistended abdomen Right forearm with 2 x 2 area of ulceration with surrounding 10 x 10 area of erythema and warmth, no appreciable induration fluctuance or crepitus, there is streaking erythema up the proximal arm with palpable lymphadenopathy in the right axilla no focal neurologic deficits Appropriate mood and affect Course Vital Signs Vital signs: Vital Signs Temperature 36.2 C L 07/08/23 08:33 Pulse 70 07/08/23 08:33 Respiratory Rate 17 07/08/23 08:33 Blood Pressure 132/87 07/08/23 08:33 Pulse Oximetry 97 07/08/23 08:33 Temperature 36.2 C L 07/08/23 08:40 Temperature Source Oral 07/08/23 08:40 Pulse 70 07/08/23 08:40 Respiratory Rate 17 07/08/23 08:40 Respiratory Effort Normal 07/08/23 08:39 Blood Pressure 132/87 07/08/23 08:40 Blood Pressure Position Sitting 07/08/23 08:40 Pulse Oximetry 97 07/08/23 08:40 Oxygen Delivery Method Room Air 07/08/23 08:40 Oxygen Flow Rate 0 07/08/23 08:40 Pain Level 8 07/08/23 08:40 Lab/Test Results Lab/Test Results: 07/08/23 08:50 Blood Blood Culture - Pending 07/08/23 08:39 Blood Blood Culture - Pending Laboratory Tests Range/Units 07/08/23 08:50 WBC (4.4-10.8) 10^3/uL 11.83 H RBC (4.36-5.78) 10^6/uL 4.59 Hgb (13.5-17.5) g/dL 14.4 Hct (40.0-50.0) % 42.2 MCV (80-95) fL 92 MCH (27.0-33.0) pg 31.4 MCHC (32.0-36.0) % 34.1 RDW (11.8-14.1) % 13.7 Plt Count (130-400) 10^3/uL 261 MPV (8.0-11.0) fL 10.2 Immature Gran % 0.3 Neutrophils % 63.3 Lymphocytes % 22.1 Monocytes % 10.9 Eosinophils % 3.0 Basophils % 0.4 Nucleated RBC % (0.0-0.3) % 0.0 Absolute Neutrophils (1.2-6.7) 10^3/uL 7.49 H Absolute Lymphocytes (1.2-3.4) 10^3/uL 2.61 Absolute Monocytes (0.1-0.8) 10^3/uL 1.29 H Absolute Eosinophils (0.0-0.7) 10^3/uL 0.35 Absolute Basophils (0.0-0.2) 10^3/uL 0.05 VBG Lactate (0.6-1.4) mmol/L 1.4 Medical Decision Making Emergent evaluation of cellulitis. Symptoms have been progressing fairly rapidly. Started on antibiotics yesterday, but symptoms have significantly worsened since that time. He has now has distal lymphadenopathy with streaking lymphangitis. Subjective fever at home. Concern for necrotizing infection, cellulitis, sepsis. Will start broad-spectrum antibiotics, lab work cultures and anticipate admission for the patient. Lab work reviewed. CBC with leukocytosis and shift. Inflammatory markers are slightly elevated. Procalcitonin is normal. Antibiotics have been started. Cultures have been sent. The patient will be admitted for severe cellulitis. Medical Records Medical records reviewed: Yes I reviewed the patient's medical records. Medical records narrative: Reviewed the medical record and noted that in January 2021, he did have a skin culture that was positive for MRSA. Lab Data Lab results reviewed: Yes I reviewed the patient's lab results. Quality:[facility] Health Related Social Needs: No Data to Display PFSH All Active Problems (Updated 07/08/23 @ 11:08 by Jaden Dalal MD) Cellulitis (Acute) Pre-procedure lab exam (Acute) Spinal stenosis (Acute) Back pain (Acute) Paronychia (Acute) Smoker (Acute) Hyperlipidemia (Acute 10/21/13) Depressive disorder (Acute 10/22/12) Colon adenoma (Acute 02/24/17) sessile serrated. needs colonoscopy every 3 years (next 2019) Bilateral elbow joint pain (Acute 07/21/16) Medical History Left lateral epicondylitis Hyperlipidemia Tobacco use Depression Pelvic pain in male (06/20/17) Suppurative tenosynovitis of flexor tendon of left hand Both arms now Acute appendicitis with generalized peritonitis Surgical History H/O neck surgery Colonoscopy - MAC (04/11/17) Colonoscopy - IV Sedation (02/24/17) Appendectomy (12/01/17) Family History Father Essential hypertension Hyperlipidemia Heart disease Grandmother Colon cancer Social History Smoking/Tobacco Use Status: Current every day Tobacco Type: cigarettes Smokeless tobacco user: chewing tobacco Smoking risk assessment performed?: Yes Alcohol Intake: former Drug use: Occasionally Substance use type: marijuana Details: occasionally Household members: significant other and children Housing: house Number of Children: 4 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: [employer] What is your relationship status?: living with partner Panel score (0-1 are the most socially isolated patients): 1 What type of physical activity do you participate in: additional Details: active with work Do you feel safe at home: Yes Do you feel safe in your relationship?: Yes Discharge Plan Disposition Patient Disposition: Admit to [facility] Condition: Stable Discharge Details Chief Complaint: Cellulitis Clinical Impression: Cellulitis Primary Care Provider: Estrella Negron ED Provider: Jaden Dalal Home Meds and New Rx's Prescriptions: No Action acetaminophen [Tylenol Extra Strength] 500 mg tablet 1,000 mg PO TID fluoxetine 20 mg capsule 60 mg PO DAILY 90 Days Qty: 240 3RF Rx Instructions: no abrupt cessation ibuprofen 800 mg tablet 800 mg PO Q8H PRN (Reason: fever or pain) Qty: 60 0RF doxycycline hyclate 100 mg capsule 100 mg PO BID Qty: 14 0RF Rx Instructions: Avoid sun exposure. Take with meal. Take 1 pill every 12 hours x 7 days mupirocin 2 % ointment 1 applic topical BID Qty: 15 0RF Rx Instructions: apply 2x daily for 7 days gabapentin 600 mg tablet See Rx Instructions .ROUTE .COMPLEX Qty: 180 0RF Dose Instruction: TAKE 1 TABLET BY MOUTH TWICE DAILY Rx Instructions: TAKE 1 TABLET BY MOUTH TWICE DAILY baclofen 20 mg tablet 20 mg PO BID 30 Days Qty: 60 5RF Rx Instructions: No abrupt cessation. omeprazole 20 mg capsule,delayed release(DR/EC) See Rx Instructions .ROUTE .COMPLEX Qty: 90 3RF Dose Instruction: TAKE 1 CAPSULE BY MOUTH DAILY Rx Instructions: TAKE 1 CAPSULE BY MOUTH DAILY
[2023-07-08] MEDS: CEFEPIME 2 GM in Normal Saline 100 ML IVPB ×2 (09:10→15:54)
[2023-07-08 09:21] LABS: ALT 27 U/L (16-63); AST 20 U/L (15-37); Albumin 3.8 g/dL (3.4-5.0); Alkaline Phosphatase 77 U/L (46-116); Anion Gap 11.7 mmol/L (3-11); BUN 11 mg/dL (7-18); Bilirubin, Total 0.3 mg/dL (0.2-1.0); C-Reactive Protein 10.64 mg/dL (<or=0.5); CO2 23.3 mmol/L (21.0-32.0); CREATININE 0.8 mg/dL (0.70-1.30); Calcium 9.1 mg/dL (8.5-10.1); Chloride 103 mmol/L (98-107); Estimated GFR 111.92 (mL/min/1.73m2); Glucose 138 mg/dL (74-106); Potassium 3.8 mmol/L (3.5-5.1); Sodium 138 mmol/L (136-145); Total Protein 8.1 g/dL (6.4-8.2)
[2023-07-08] MEDS: VANCOMYCIN/WATER (PEG) 1.5 GM/300 ML BAG IVPB ×2 (09:48→23:00)
[2023-07-08 09:59] LABS: Procalcitonin < 0.1 ng/mL
--- NOTE | 2023-07-08 10:14 | HPE_ITS ---
Date of service: 07/08/23 Time of Service: 10:14 Assessment and Plan Assessment and plan (1) Cellulitis: Status: Acute Assessment and plan: Cultures pending Continue cefepime 2 g IV Q8 Continue vancomycin 1200 mg IV every 12 Monitor for fevers and worsening cellulitis (2) Smoker: Assessment and plan: Will order nicotine patch replacement if the patient agrees (3) Depressive disorder: Assessment and plan: Will continue home meds (4) On deep vein thrombosis (DVT) prophylaxis: Status: Deleted Assessment and plan: Will start Lovenox subcutaneous daily (5) Nicotine dependence: Assessment and plan: Nicotine patch 21 mg daily (6) Discharge planning issues: Status: Deleted Assessment and plan: None at this time but care management will follow up and reevaluate if need arises Discussed with Dr. Cabrera History of Present Illness History of Present Illness Chief Complaint: cellulitis, spider bite w failed outpatient antibiotic therapy Narrative: This 43-year-old male patient without significant past medical history except for skin MRSA in 01/22/2021 presented today at [facility] for evaluation of right forearm wound noted 2 days ago for which urgent care had prescribed oral doxycycline yesterday. The patient reported initial size of the bite to be like pinhead with progressing redness since that time. The patient also reported redness streaking up his arm and feeling a large lump under his armpit which is painful to touch. Patient reported feeling like he was having fevers but did not measure his temperature. The emergency room provider exam confirmed distal lymphadenopathy with streaking lymphangitis with concern for infection, cellulitis and sepsis. The provider decided to start the patient on cefepime and vancomycin. Procalcitonin was within normal range and cultures were sent. The hospitalist was contacted and the patient was admitted to the medical surgical floor as an inpatient for severe cellulitis. On arrival to the floor the patient reports discomfort to his right axillary, previous episode of nausea, chills.The patient denies lightheadedness, change in vision, shortness of breath, chest pain, hemoptysis, vomiting, constipation, and dysuria.The patient confirms that he is full code. The patient is agreeable to the plan to treat with broad-spectrum antibiotic while awaiting cultures. Discussed with Dr. cabrera Review of Systems All systems reviewed & are unremarkable except as noted in HPI and below PFSH All Active Problems (Updated 07/10/23 @ 00:06 by TOMY GUERRA) Cellulitis (Acute) Pre-procedure lab exam (Acute) Spinal stenosis (Acute) Back pain (Acute) Paronychia (Acute) Hyperlipidemia (Acute 10/21/13) Colon adenoma (Acute 02/24/17) sessile serrated. needs colonoscopy every 3 years (next 2019) Bilateral elbow joint pain (Acute 07/21/16) Medical History Left lateral epicondylitis Hyperlipidemia Tobacco use Depression Pelvic pain in male (06/20/17) Suppurative tenosynovitis of flexor tendon of left hand Both arms now Acute appendicitis with generalized peritonitis Surgical History H/O neck surgery Colonoscopy - MAC (04/11/17) Colonoscopy - IV Sedation (02/24/17) Appendectomy (12/01/17) Family History (Updated 07/08/23 @ 15:05 by Cristina Lubin APRN) Father Essential hypertension Hyperlipidemia Heart disease Grandmother Colon cancer Sister Breast cancer Social History Smoking/Tobacco Use Status: Current every day Tobacco Type: cigarettes Smokeless tobacco user: chewing tobacco Smoking risk assessment performed?: Yes Alcohol Intake: former Drug use: Occasionally Substance use type: marijuana Details: occasionally Household members: significant other and children Housing: house Number of Children: 4 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: [employer] What is your relationship status?: living with partner Panel score (0-1 are the most socially isolated patients): 1 What type of physical activity do you participate in: additional Details: active with work Do you feel safe at home: Yes Do you feel safe in your relationship?: Yes Meds Allergies and Home Medications Allergies Allergy/AdvReac Type Severity Reaction Status Date / Time No Known Allergies Allergy Verified 07/17/23 14:13 Home Medications Medication Instructions Recorded Confirmed Type acetaminophen 500 mg tablet 1,000 mg PO TID 05/27/20 07/17/23 History (Tylenol Extra Strength) fluoxetine 20 mg capsule 60 mg (3 x 20 mg) PO DAILY 90 days 09/27/22 07/17/23 Rx #240 caps baclofen 20 mg tablet 20 mg PO BID for muscle spasm 30 03/13/23 07/17/23 Rx days #60 tabs gabapentin 600 mg tablet See Rx Instructions .Route 03/13/23 07/17/23 Rx .COMPLEX #180 tabs ibuprofen 800 mg tablet 800 mg PO Q8H PRN fever or pain 05/11/23 07/17/23 Rx #60 tabs omeprazole 20 mg capsule,delayed See Rx Instructions .Route 06/08/23 07/17/23 Rx release .COMPLEX #90 caps mupirocin 2 % topical ointment 1 applic topical BID #15 grams 07/07/23 07/17/23 Rx L. acidophilus,casei,rhamnosus 50 1 cap PO DAILY #10 caps 07/09/23 07/17/23 Rx billion cell capsule,delayed release (Bio-K plus) sulfamethoxazole 800 1 tab PO Q12H #14 tabs 07/09/23 07/17/23 Rx mg-trimethoprim 160 mg tablet (Bactrim DS) Exam Narrative Exam Narrative: Constitutional The patient is sitting in chair/ lying in bed comfortable and cooperative during the interview. The patient is well groomed without acute distress and has average body habitus/is obese/ is thin. HENMT: Head is atraumatic, normocephalic.Facial structures with normal appearance Neck: No lympahdenopathy, no JVD, no meningeal signs Neuro:alert and oriented to self, person, place,time and situation. No neurological focal deficit Chest:Chest is symmetrical and normal appearance Resp: Normal respiratory pattern, speaks in full sentences, unlabored breathing, clear lung bilaterally Cardio: regular rhythm, S1, S2, no murmur, capillary refill<3 sec., bilateral radial and dorsalis pedis pulses are positive, palpable GI: Abdomen is not distended, soft and non tender, bowel sounds are present : Negative Costovertebral angle tenderness, no bladder distension Back/spine/Pelvis: No back tenderness Integumentary: Right arm: reddened area with central necrotic/ eschar ulcer bed, red streak up to axilary area with enlarged lymph node tender to palpation. right tumb and index healing scar, Extremities: strength 5/5 to bilateral lower and upper extremities Psych: RASS 0, congruent mood and normal affect. Results Labs 07/09/23 06:09 07/09/23 06:09 Labs: Laboratory Results - last 24 hr 07/08/23 08:50 WBC 11.83 H RBC 4.59 Hgb 14.4 Hct 42.2 MCV 92 MCH 31.4 MCHC 34.1 RDW 13.7 Plt Count 261 MPV 10.2 Immature Gran % 0.3 Neutrophils % 63.3 Lymphocytes % 22.1 Monocytes % 10.9 Eosinophils % 3.0 Basophils % 0.4 Nucleated RBC % 0.0 Absolute Neutrophils 7.49 H Absolute Lymphocytes 2.61 Absolute Monocytes 1.29 H Absolute Eosinophils 0.35 Absolute Basophils 0.05 ESR 46 H VBG Lactate 1.4 Sodium 138 Potassium 3.8 Chloride 103 Carbon Dioxide 23.3 Anion Gap 11.7 H BUN 11 Creatinine 0.8 Est GFR (CKD-EPI 2020) 111.92 Glucose 138 H Calcium 9.1 Total Bilirubin 0.3 AST 20 ALT 27 Alkaline Phosphatase 77 C-Reactive Protein 10.64 Total Protein 8.1 Albumin 3.8 Procalcitonin < 0.1 Last Vital Signs Temp 36.2 C L 07/08/23 08:40 Pulse 70 07/08/23 08:40 Resp 17 07/08/23 08:40 BP 132/87 07/08/23 08:40 Pulse Ox 97 07/08/23 08:40 PAWSS Pt Consumed Any Amount of Alcohol Within the Last 30 days OR had positive ALEXA Upon Admission: No Time Spent Time spent with Patient: >75 minutes Time was spent: preparing to see the patient(eg.review tests), obtaining and/or reviewing separately otained hiistory, ordering medications,tests, procedures, referring, communicating with other health child care coordinator, indepentently interpreting results, counseling the patient and care coordination
[2023-07-08 11:49] VITALS: BP 160/92; PULSE 57; RESP 18; TEMP 35.6; O2SAT 97
[2023-07-08 12:14] VITALS: BP 135/70
[2023-07-08] MEDS: Acetaminophen 500 MG TAB 1000 MG PO ×2 (13:14→20:24)
[2023-07-08 15:08] VITALS: BP 125/75; PULSE 60; RESP 16; TEMP 36.1; O2SAT 96
[2023-07-08] MEDS: Nicotine 21 MG/24 HR PATCH TD (15:53)
[2023-07-08] MEDS: Ibuprofen 800 MG TAB PO (16:31)
[2023-07-08] MEDS: Gabapentin 600 MG TAB PO ×2 (17:50→20:24)
[2023-07-08] MEDS: Baclofen 10 MG TAB 20 MG PO (20:24)
[2023-07-08] MEDS: Mupirocin 2% Oint. 22 GM TUBE TP (20:25)
[2023-07-08 22:06] LABS: MRSA PCR Positive (Negative)
[2023-07-08 23:34] VITALS: BP 125/75; PULSE 52; RESP 18; TEMP 36.3; O2SAT 97
[2023-07-09] MEDS: CEFEPIME 2 GM in Normal Saline 100 ML IVPB ×2 (01:00→09:31)
[2023-07-09 06:24] LABS: Abs Immature Grans 0.02 10^3/uL (0.0-0.06); Absolute Basophil Count 0.06 10^3/uL (0.0-0.2); Absolute Eosinophil Count 0.59 10^3/uL (0.0-0.7); Absolute Monocyte Count 0.93 10^3/uL (0.1-0.8); Absolute Neutrophil Count 3.78 10^3/uL (1.2-6.7); Basophils % 0.8; Eosinophils % 7.4; HCT 41.6 % (40.0-50.0); HGB 14.2 g/dL (13.5-17.5); Immature Grans % 0.3; Lymphocytes % 32.6; MCH 31.4 pg (27.0-33.0); MCHC 34.1 % (32.0-36.0); MCV 92 fL (80-95); MPV 10.2 fL (8.0-11.0); Monocytes % 11.7; Neutrophils % 47.2; Platelet Count 248 10^3/uL (130-400); RBC 4.52 10^6/uL (4.36-5.78); RDW 13.6 % (11.8-14.1); RDW-SD 46.6 fL; WBC 7.98 10^3/uL (4.4-10.8)
[2023-07-09 06:34] LABS: Anion Gap 11.1 mmol/L (3-11); BUN 11 mg/dL (7-18); CO2 22.9 mmol/L (21.0-32.0); CREATININE 0.6 mg/dL (0.70-1.30); Calcium 8.8 mg/dL (8.5-10.1); Chloride 106 mmol/L (98-107); Estimated GFR 122.07 (mL/min/1.73m2); Glucose 114 mg/dL (74-106); Potassium 4.3 mmol/L (3.5-5.1); Sodium 140 mmol/L (136-145)
[2023-07-09] MEDS: Gabapentin 600 MG TAB PO ×2 (07:43→14:15)
[2023-07-09] MEDS: FLUoxetine 20 MG CAP 60 MG PO (07:43)
[2023-07-09] MEDS: Omeprazole 20 MG CAPCR PO (07:43)
[2023-07-09] MEDS: Acetaminophen 500 MG TAB 1000 MG PO ×2 (07:44→14:14)
[2023-07-09] MEDS: Nicotine 21 MG/24 HR PATCH TD (07:44)
[2023-07-09] MEDS: Baclofen 10 MG TAB 20 MG PO (07:44)
[2023-07-09] MEDS: Mupirocin 2% Oint. 22 GM TUBE TP (07:45)
[2023-07-09 08:13] VITALS: BP 134/80; PULSE 68; RESP 17; TEMP 36.7; O2SAT 95
--- NOTE | 2023-07-09 08:48 | INITIAL_ITS ---
Date of service: 07/09/23 Time of Service: 08:48 Care Management Initial Assmt Initial Assessment REASON FOR HOSPITALIZATION:: cellulitis PREVIOUS FUNCTIONAL STATUS/SOCIAL/FAMILY SUPPORTS:: Jaun lives in [place], alone. 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 He reports that he has a lot of family support in the area. He is independent at baseline. CURRENT FUNCTIONAL STATUS:: Jaun was sitting up in his chair, fully dressed in his own clothes when CM met with him. He stated that he is leaving today, and hopes to be discharged by 2pm. He stated that he hasn't seen the provider yet, but plans to leave today either way. He stated that he feels much better today, and doesn't want to remain in the hospital. He feels he can manage well at home. CM informed the provider, who was able to change his antibiotics to oral Keflex and Bactrim; Jaun stated that his prescriptions are usually covered well by his insurance. CM will continue to follow. ADVANCE DIRECTIVES:: Not on file; CM will offer forms. Has patient been provided with info about the portal/API?: Yes Did the patient sign up for the portal?: Yes (active) CODE STATUS:: Full Code INSURANCE COVERAGE / FINANCIAL ISSUES:: [place] CURRENT HOME/COMMUNITY SERVICES/EQUIPMENT:: None. PRIMARY CARE PHYSICIAN:: Estrella Negron POTENTIAL DISCHARGE NEEDS:: Follow up appointments. PATIENT/FAMILY EDUCATION NEEDS:: Review discharge instructions and limitations, discussion of self care needs including ask me three. ANTICIPATED BARRIERS TO DISCHARGE:: None identified. TRANSPORTATION:: Via private vehicle by family. PLAN:: Anticipate Jaun will return home once medically cleared. He is currently on IV antibiotics; awaiting cultures to determine course of antibiotics. He will be driven home via private vehicle by family. He will follow up with his PCP and discharge plan of care. CM will continue to follow. PFSH All Active Problems (Updated 07/08/23 @ 15:05 by Cristina Lubin APRN) Nicotine dependence (Acute) Discharge planning issues (Acute) On deep vein thrombosis (DVT) prophylaxis (Acute) Cellulitis (Acute) Pre-procedure lab exam (Acute) Spinal stenosis (Acute) Back pain (Acute) Paronychia (Acute) Smoker (Acute) Hyperlipidemia (Acute 10/21/13) Depressive disorder (Acute 10/22/12) Colon adenoma (Acute 02/24/17) sessile serrated. needs colonoscopy every 3 years (next 2019) Bilateral elbow joint pain (Acute 07/21/16) Medical History Left lateral epicondylitis Hyperlipidemia Tobacco use Depression Pelvic pain in male (06/20/17) Suppurative tenosynovitis of flexor tendon of left hand Both arms now Acute appendicitis with generalized peritonitis Surgical History H/O neck surgery Colonoscopy - MAC (04/11/17) Colonoscopy - IV Sedation (02/24/17) Appendectomy (12/01/17) Family History (Updated 07/08/23 @ 15:05 by Cristina Lubin APRN) Father Essential hypertension Hyperlipidemia Heart disease Grandmother Colon cancer Sister Breast cancer Social History Smoking/Tobacco Use Status: Current every day Tobacco Type: cigarettes Smokeless tobacco user: chewing tobacco Smoking risk assessment performed?: Yes Alcohol Intake: former Drug use: Occasionally Substance use type: marijuana Details: occasionally Household members: significant other and children Housing: house Number of Children: 4 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 What is your relationship status?: living with partner Panel score (0-1 are the most socially isolated patients): 1 What type of physical activity do you participate in: additional Details: active with work Do you feel safe at home: Yes Do you feel safe in your relationship?: Yes SDOH(Care Management) Screening Will the Patient Participate in the Screening?: Unable to obtain Do you worry about having a steady place to live?: no Problems where you live: no known problems In the past 12 months, have you had to go without electric, gas, oil or water in your home?: no Have you or anyone in your house had to go without enough food to eat?: no Has lack of transportation kept you from medical appointments or from doing things needed for daily living?: no Has anyone in your support network made you feel unsafe for any reason?: no
[2023-07-09] MEDS: VANCOMYCIN/WATER (PEG) 1.5 GM/300 ML BAG IVPB (10:18)
--- NOTE | 2023-07-09 10:28 | W.PM.PROGNOT ---
Date of Service Date of service: 07/09/23 Time of Service: 10:30 Assessment and Plan Assessment and plan (1) Cellulitis: Status: Acute Assessment and plan: Blood Cultures still pending Continue cefepime 2 g IV Q8 Continue vancomycin 1200 mg IV every 12; MRSA nares was positive on 2/3 Trending CRP afebrile, decreased redness (2) Depressive disorder: Status: Acute Assessment and plan: Will continue fluoxetine from home meds (3) Nicotine dependence: Status: Acute Assessment and plan: Continue Nicotine patch 21 mg daily (4) On deep vein thrombosis (DVT) prophylaxis: Status: Acute Assessment and plan: Continue Lovenox subcutaneous daily (5) Discharge planning issues: Status: Acute Assessment and plan: No need fro home discharge and reevaluate if need arises Discussed with Dr. Cook Exam Narrative Exam Narrative: Constitutional The patient is sitting in chair/ lying in bed comfortable and cooperative during the interview. The patient is well groomed without acute distress and has average body habitus/is obese/ is thin. HENMT: Head is atraumatic, normocephalic.Facial structures with normal appearance Neck: No lympahdenopathy, no JVD, no meningeal signs Neuro:alert and oriented to self, person, place,time and situation. No neurological focal deficit Chest:Chest is symmetrical and normal appearance Resp: Normal respiratory pattern, speaks in full sentences, unlabored breathing, clear lung bilaterally Cardio: regular rhythm, S1, S2, no murmur, capillary refill<3 sec., bilateral radial and dorsalis pedis pulses are positive, palpable GI: Abdomen is not distended, soft and non tender, bowel sounds are present : Negative Costovertebral angle tenderness, no bladder distension Back/spine/Pelvis: No back tenderness Integumentary: Right arm: reddened area with central necrotic/ eschar ulcer bed, red streak up to axilary area with enlarged lymph node tender to palpation. right tumb and index healing scar, Extremities: strength 5/5 to bilateral lower and upper extremities Psych: RASS 0, congruent mood and normal affect. Objective Last Vital Signs Temp 36.7 C 07/09/23 08:13 Pulse 68 07/09/23 08:13 Resp 17 07/09/23 08:13 BP 134/80 07/09/23 08:13 Pulse Ox 95 07/09/23 08:13 Laboratory Results - last 24 hr 07/08/23 07/09/23 19:25 06:09 WBC 7.98 RBC 4.52 Hgb 14.2 Hct 41.6 MCV 92 MCH 31.4 MCHC 34.1 RDW 13.6 Plt Count 248 MPV 10.2 Immature Gran % 0.3 Neutrophils % 47.2 Lymphocytes % 32.6 Monocytes % 11.7 Eosinophils % 7.4 Basophils % 0.8 Nucleated RBC % 0.0 Absolute Neutrophils 3.78 Absolute Lymphocytes 2.60 Absolute Monocytes 0.93 H Absolute Eosinophils 0.59 Absolute Basophils 0.06 Sodium 140 Potassium 4.3 Chloride 106 Carbon Dioxide 22.9 Anion Gap 11.1 H BUN 11 Creatinine 0.6 L Est GFR (CKD-EPI 2020) 122.07 Glucose 114 H Calcium 8.8 MRSA (TEM-PCR) Positive A PAWSS Pt Consumed Any Amount of Alcohol Within the Last 30 days OR had positive ALEXA Upon Admission: No
--- NOTE | 2023-07-09 10:36 | PHACLINREV_ITS ---
Pharmacy Admission Review Admission Clinical Review Admission Pharmacy Review: (Updated 07/08/23 @ 15:05 by Cristina Lubin APRN) Nicotine dependence (Acute) Discharge planning issues (Acute) On deep vein thrombosis (DVT) prophylaxis (Acute) Cellulitis (Acute) Smoker (Acute) Depressive disorder (Acute 10/22/12) No Known Allergies Allergy (Verified 07/08/23 08:40) Resuscitation Status Full Code Height 5 ft 7 in Weight 95.708 kg Comments Comments/Follow Ups: Cellulitiis right forearm wound, failed outpt treatment w/Doxy, worsening and painful. MRSA positive, blood cultures pending, wound cultures pending. On Vanco/Cefepime, Afebrile. Follow Antibiotic coverage, de-es calate once Microbiology final. Pharmacy Admission Review Renal Dosing Renal Dosing: BUN 11 mg/dL (7-18) 07/09/23 06:09 Creatinine 0.6 mg/dL (0.70-1.30) L 07/09/23 06:09 CrCl~173 ml/min Medications needing adjustments: Reviewed (none) Anticoagulation Anticoagulation: Hgb 14.2 g/dL (13.5-17.5) 07/09/23 06:09 Hct 41.6 % (40.0-50.0) 07/09/23 06:09 Plt Count 248 10^3/uL (130-400) 07/09/23 06:09 Creatinine 0.6 mg/dL (0.70-1.30) L 07/09/23 06:09 DVT Prophylaxis: Reviewed Medications: Enoxaparin Relevant Labs Relevant Labs: ESR 46 mm/hr (0-15) H 07/08/23 08:50 Sodium 140 mmol/L (136-145) 07/09/23 06:09 Potassium 4.3 mmol/L (3.5-5.1) 07/09/23 06:09 Chloride 106 mmol/L (98-107) 07/09/23 06:09 C-Reactive Protein 10.64 mg/dL (<or=0.5) 07/08/23 08:50 WBC WNL, Procal <0.1, Lactate elevated 1.4 QTc Review QTc: N/A Home Meds Home Med List reviewed: Reviewed Current Meds Current Medication Order Review: Reviewed Pharmacy Antibiotic Review Relevant Labs: Procal negative, inflammatory markers all elevated, WBC WNL Pharmacy Antibiotic Activity: C/S review (MRSA positive, blood and wound cultures pending, on Vanco/Cefepime) Comments Comments/Follow Ups: Cellulitiis right forearm wound, failed outpt treatment w/Doxy, worsening and painful. MRSA positive, blood cultures pending, wound cultures pending. On Vanco/Cefepime, Afebrile. Follow Antibiotic coverage, de- escalate once Microbiology final.
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
[2023-07-09] MEDS: Sulfameth/Trimeth DS TAB 1 TAB PO (14:15)
--- NOTE | 2023-07-09 14:39 | PDOC.CMDIS ---
Date of service: 07/09/23 Time of Service: 14:39 LACE Index Scoring Tool Questions: Length of Stay (in days): 1 Was the patient admitted via the E.D.?: Yes E.D. Visits: 0 Answers: Total Score: 4 Risk of Readmission: Low Risk Care Management Discharge Plan Reason for Hospitalization: cellulitis Discharge Plan: Jaun will return home with no new services, and a prescription for oral antibiotics. He will be driven home via private vehicle by family. He will follow up with his PCP and discharge plan of care. He is happy to be going home. Patient/Family Education Needs: Review discharge instructions and limitations, discussion of self care needs including ask me three. SDOH Health Related Social Needs: No Data to Display
== END 2023-07-09 14:26 | disposition home or self-care (01) | DRG 603 ==
LOC: ER 11:08 → MS 11:44
PROVIDERS: Nurse Practitioner Acute Care; Admitting Provider Family Medicine; Emergency Provider Emergency Medicine; PCP Nurse Practitioner Family; Visit Provider Family Medicine
DX: L03.113 Cellulitis of right upper limb (principal); F17.210 Nicotine dependence, cigarettes, uncomplicated; F32.A Depression, unspecified; W57.XXXA Bitten or stung by nonvenomous insect and other nonvenomous arthropods, initial encounter; M54.9 Dorsalgia, unspecified; E78.5 Hyperlipidemia, unspecified; B95.0 Streptococcus, group A, as the cause of diseases classified elsewhere
CPT/HCPCS: 00123; 36415; 80048; 80053; 84145; 85652; 87040; 87641; 96365; 96368; 99285; 83605; 85025; 86140; 99223; 99239; J0692; J3372

== ENCOUNTER 2024-03-22 22:45 | Outpatient (REF) | payer MEDICAID, SELFPAY | END 2024-03-22 22:46 | disposition home or self-care (01) | LOC: LBN 22:45 | PROVIDERS: PCP Nurse Practitioner Family; Visit Provider Physician Assistant | DX: R05.9 Cough, unspecified (principal) | CPT/HCPCS: 87070 ==

== ENCOUNTER 2025-01-14 11:49 | Outpatient (CLI) | payer MEDICAID, SELFPAY ==
--- NOTE | 2025-01-14 11:45 | RT.EKG_ITS ---
APPROVED REPORT Exam: Resting ECG Reason for Exam: pre op Patient Location: O HR:64 bpm ECG Measurements Heart Rate 64 AXIS NE 176 P 83 QRSd 78 QRS 79 QT 396 T 59 QTc 409 Conclusion Sinus rhythm...normal P axis, V-rate 50- 99 Normal Electrocardiogram
== END 2025-01-14 11:50 | disposition home or self-care (01) ==
LOC: DI.CM 11:50
PROVIDERS: PCP Nurse Practitioner Family; Visit Provider Nurse Practitioner Family
DX: Z01.818 Encounter for other preprocedural examination (principal)
CPT/HCPCS: 93010